=== PATIENT | female | born 1950 | race American Indian/Alaskan Native ===

== ENCOUNTER 2017-07-03 03:41 | Inpatient (IN) ==
[2017-07-03] MEDS ORDERED: ACETAMINOPHEN 325 MG TABLET PO ONE ×2 (04:31→04:41)
[2017-07-03] MEDS ORDERED: ONDANSETRON 4 MG/2 ML VIAL ONE (05:08)
[2017-07-03] MEDS ORDERED: ONDANSETRON 4 MG/2 ML VIAL IV ONE (05:10)
[2017-07-03 05:12] LABS: Basophils # (Auto) 0.2 K/mcL (0.0-0.3); Basophils % (Auto) 1.1 % (0.0-2.0); Eosinophils # (Auto) 0.1 K/mcL (0.0-0.7); Eosinophils % (Auto) 0.8 % (0.0-7.0); Granulocytes % (Auto) 86.3 % (38.0-78.0); Lymphocytes # (Auto) 0.9 K/mcL (1.5-4.8); Lymphocytes % (Auto) 6.8 % (15.5-49.0); Mean Cell Volume 93.9 fL (80.0-100.0); Mean Corpuscular HGB Conc 33.7 g/dL (31.0-36.0); Mean Corpuscular Hemoglobin 31.6 pg (26.0-34.0); Monocytes # (Auto) 0.7 K/mcL (0.1-0.9); Platelet Count 253 K/mcL (140-440); RBC 3.12 M/mcL (4.00-5.20); Red Cell Distribution Width 15.8 % (11.5-14.5)
[2017-07-03] MEDS ORDERED: cefTRIAXone 1 GM VIAL IM ONE (05:27)
[2017-07-03 05:28] LABS: ALT/SGPT 14 U/l (0-40); Albumin 3.9 gm/dL (3.2-5.2); Albumin/Globulin Ratio 1.3 (1.0-2.3); Alkaline Phosphatase 171 U/L (39-117); Blood Urea Nitrogen 40 mg/dl (8-23)
--- NOTE | 2017-07-03 05:35 | Emergency Department Note ---
Fever HPI - General Chief Complaint: Fever Stated Complaint: fever Time Seen by Provider: 07/03/17 05:31 Source: family Mode of arrival: wheelchair Limitations: no limitations - History of Present Illness HPI Narrative: This pleasant 67-year-old comes in waking up this morning with feeling very cold. She is worried about possible infection such as around her toes where she has had previous unsuspected infection that ended up with amputation of her fifth toe on each foot. She has no other sign or symptom of infection that she can share at this time except as follows. For example, no runny nose, no sore throat, no coughing, no ear pain. She vomited once on the way in. She had 2 episodes of diarrhea yesterday afternoon. There was no blood in her diarrhea. She has a niece with an upper respiratory infection but has stayed away from her. No scabs or decubiti that she is aware of (is wheelchair bound). - Related Data Home Medications Medication Instructions Recorded Confirmed Aldendronate 70 mg PO WEEKLY 02/14/16 07/03/17 Aspirin [Lite Coat Aspirin] 325 mg PO DAILY 02/14/16 07/03/17 Carvedilol [Coreg] 12.5 mg PO BIDCC 02/14/16 07/03/17 Docusate Sodium [Dok] 100 mg PO DAILY 02/14/16 07/03/17 Gabapentin [Neurontin] 100 mg PO DAILY PRN 02/14/16 07/03/17 traMADol [Ultram] 50 mg PO BID 02/14/16 07/03/17 Ergocalciferol (Vitamin D2) 50,000 unit PO WEEKLY 07/03/17 07/03/17 [Vitamin D2] Folic Acid/Vit Bcomp,C 0.8 mg PO ONCE 07/03/17 07/03/17 [Nephro-Juancarlos Tablet] Sevelamer [Renvela] 800 mg PO ONCE 07/03/17 07/03/17 Allergies Allergy/AdvReac Type Severity Reaction Status Date / Time cinacalcet [From Sensipar] AdvReac Severe Other Verified 02/15/16 10:35 Review of Systems Review of Systems: General: Fevers chills but no sweats. Eyes: No visual changes. CV: She denies chest pains and palpitations. Pulmonary: She denies cough and shortness of breath. She does not use oxygen at home. GI: No abdominal pain or nausea. Vomited once this morning. She also vomited during the interview today. She has had a couple of episodes of the diarrhea. She has a sense of needing to go to the bathroom with a bowel movement as if constipated. She nearly passes out when she tries to have a bowel movement and has to force it. She has taken a little more tramadol around her dialysis which sometimes adds to constipation or difficulties with bowels. : No dysuria but she has no urinary output. MSK: No back pain. She has joint pain in her shoulders that is quite significant and severe as well as upper arm achiness bilateral, right more than the left I believe. Derm: Sometimes a rash around her panty line area with roughness. No skin lesions. Neuro: No headaches. She has felt weak today. No dizziness but feels lightheaded after dialysis which is not usually normal for her. Last dialysis they took off 44. Psych: She denies anxiety or depression symptoms currently. Did have some depression in the past. Endocrine: Some fatigue after dialysis. Fever PMH - Past Medical History Medical history: Reports: coronary artery disease (minor narrowing, 2015.), diabetes, hypertension, osteoporosis, renal disease (on chronic dialisys since 1998), other (Morbid obesity. NO TYESHA, PUD, pancreatitis.). Denies: cancer, CVA , hyperlipidemia, myocardial infarction, thyroid disease, TIA Surgical history ED: Reports: orthopedic, other (CTS. Amputation both 5th toes. ), other (A-V shunt left forearm.) Psychiatric history: Reports: depression (remotely. Now fine.). Denies: anxiety Family history: Reports: other (two brothers with CRF, DM; .) - Social History smoking status: Never smoker Alcohol use: Reports: None Drug use: Reports: none. Denies: marijuana Physical Exam Limitations: no limitations General appearance: alert, in no apparent distress, other (vomited several times during interview. Morbidly overweight.) Head: atraumatic, normocephalic Eye: Present: normal appearance, PERRL, EOMI. Absent: scleral icterus, conjunctival injection ENT: normal oropharynx, mucous membranes moist Neck: Present: trachea midline. Absent: lymphadenopathy, thyromegaly Respiratory: Present: normal lung sounds bilaterally. Absent: respiratory distress, wheezes, stridor, accessory muscle use, prolonged expiratory phase Cardiovascular: Present: regular rate, normal rhythm. Absent: systolic murmur ( vs possible faint murmur of venous flow (?)), diastolic murmur Abdominal: Present: soft, tenderness. Absent: distention, guarding, rebound, rigidity, organomegaly, mass Abdominal tenderness: Present: epigastrium, mild, moderate Extremities: Present: pretibial edema (trace pitting.). Absent: tenderness, pedal edema Back: Absent: tenderness Neurological: Present: alert, oriented X3 Psychiatric: Present: normal affect, normal mood Skin: Present: warm, dry, other (between toes right foot (3-4th, 2-3rd) moist white desquamation.) Course Vital Signs Temperature 102.8 F H 07/03/17 03:41 Pulse Rate 118 H 07/03/17 03:41 Respiratory Rate 19 07/03/17 03:41 Blood Pressure 144/63 07/03/17 03:41 Temperature 101.9 F H 07/03/17 05:32 Pulse Rate 101 H 07/03/17 07:09 Respiratory Rate 19 07/03/17 03:41 Blood Pressure 98/50 07/03/17 06:16 Pulse Oximetry (%) 95 07/03/17 07:09 Fever - MDM Narrative Medical decision making narrative: 3:50 AM Initial eval. Diabetic CRF dialysis patient with probable sepsis based on tachy, high fever, etc. No source easily identifiable. 5:00 AM Very very difficult blood draw for blood cultures. Requested help from Ching Wong). Labs with elevated WBC at 13.7, lactate 2.3. -- Anemia similar to past. 5:30 AM Rocephin given after blood cultures. 6:00 AM Noticeable decline in BP to systolics 90's Temp declined from 103 to 101. Pulse improved from 130's to 110's. On oxygen due to 88% on room air. Confirms a FULL CODE. Sister Pradeep Ortega is her POA. 6:13 AM I discussed with Dr. Cesar Ely. Stay at 1 L of fluid resuscitation, use pressors, use 1.5 grams of Vancomycin. Transfer out since no dialysis present and likely would need this option. 6:15 AM Dialysis IS available in [facility]. 6:17 AM Briefly discussed with Dr. Jordan who will see patient before final disposition. - Lab Data Result diagrams: 07/03/17 04:25 07/03/17 04:25 Lab Results 07/03/17 07/03/17 07/03/17 Range/Units 04:25 04:25 04:25 WBC 13.7 H (4.5-11.0) K/mcL RBC 3.12 L (4.00-5.20) M/mcL Hgb 9.9 L (12.0-15.0) g/dL Hct 29.3 L (36.0-48.0) % MCV 93.9 (80.0-100.0) fL MCH 31.6 (26.0-34.0) pg MCHC 33.7 (31.0-36.0) g/dL RDW 15.8 H (11.5-14.5) % Plt Count 253 (140-440) K/mcL MPV 7.6 (7.4-10.4) fL Gran % 86.3 H (38.0-78.0) % Lymph % (Auto) 6.8 L (15.5-49.0) % Lea % (Auto) 5.0 (1.0-12.0) % Eos % (Auto) 0.8 (0.0-7.0) % Baso % (Auto) 1.1 (0.0-2.0) % Gran # 11.8 H (1.8-8.0) K/mcL Lymph # (Auto) 0.9 L (1.5-4.8) K/mcL Lea # (Auto) 0.7 (0.1-0.9) K/mcL Eos # (Auto) 0.1 (0.0-0.7) K/mcL Baso # (Auto) 0.2 (0.0-0.3) K/mcL VBG Lactic Acid 2.3 H (0.5-2.2) mmol/L Sodium 136 (133-145) mmol/L Potassium 5.1 (3.3-5.1) mmol/L Chloride 92 L (96-108) mmol/L Carbon Dioxide 27 (22-30) mmol/L Anion Gap 17.0 H (8-16) BUN 40 H (8-23) mg/dl Creatinine 4.3 H (0.6-1.1) mg/dl GFR Calculation 10 Glucose 153 H (70-105) mg/dL Calcium 8.9 (8.6-10.4) mg/dl Total Bilirubin 0.4 (0.0-1.0) mg/dL AST 23 (0-37) U/l ALT 14 (0-40) U/l Alkaline Phosphatase 171 H (39-117) U/L Troponin T (0-0.03) ng/ml C-Reactive Protein 1.0 H (0.0-0.8) mg/dl Total Protein 7.0 (5.9-8.4) gm/dL Albumin 3.9 (3.2-5.2) gm/dL Globulin 3.1 (2.2-3.7) gm/dL Albumin/Globulin Ratio 1.3 (1.0-2.3) Lipase (7-60) U/L 07/03/17 07/03/17 Range/Units 05:35 05:35 WBC (4.5-11.0) K/mcL RBC (4.00-5.20) M/mcL Hgb (12.0-15.0) g/dL Hct (36.0-48.0) % MCV (80.0-100.0) fL MCH (26.0-34.0) pg MCHC (31.0-36.0) g/dL RDW (11.5-14.5) % Plt Count (140-440) K/mcL MPV (7.4-10.4) fL Gran % (38.0-78.0) % Lymph % (Auto) (15.5-49.0) % Lea % (Auto) (1.0-12.0) % Eos % (Auto) (0.0-7.0) % Baso % (Auto) (0.0-2.0) % Gran # (1.8-8.0) K/mcL Lymph # (Auto) (1.5-4.8) K/mcL Lea # (Auto) (0.1-0.9) K/mcL Eos # (Auto) (0.0-0.7) K/mcL Baso # (Auto) (0.0-0.3) K/mcL VBG Lactic Acid (0.5-2.2) mmol/L Sodium (133-145) mmol/L Potassium (3.3-5.1) mmol/L Chloride (96-108) mmol/L Carbon Dioxide (22-30) mmol/L Anion Gap (8-16) BUN (8-23) mg/dl Creatinine (0.6-1.1) mg/dl GFR Calculation Glucose (70-105) mg/dL Calcium (8.6-10.4) mg/dl Total Bilirubin (0.0-1.0) mg/dL AST (0-37) U/l ALT (0-40) U/l Alkaline Phosphatase (39-117) U/L Troponin T 0.07 H* (0-0.03) ng/ml C-Reactive Protein (0.0-0.8) mg/dl Total Protein (5.9-8.4) gm/dL Albumin (3.2-5.2) gm/dL Globulin (2.2-3.7) gm/dL Albumin/Globulin Ratio (1.0-2.3) Lipase 18 (7-60) U/L Disposition Pt seen by STAVE JOINTER/PA only: No Clinical Impression: Nausea vomiting and diarrhea, Hypoxia, Tachycardia, Tinea pedis of right foot, Problem with vascular access Fever Qualifiers: Fever type: due to other condition Qualified Code(s): R50.81 - Fever presenting with conditions classified elsewhere CRF (chronic renal failure) Qualifiers: Chronic kidney disease stage: stage 5 Qualified Code(s): N18.5 - Chronic kidney disease, stage 5 Diabetes mellitus Qualifiers: Diabetes mellitus type: type 2 Diabetes mellitus complication status: with unspecified complications Diabetes mellitus intermediate manager insulin use: without halfway use Qualified Code(s): E11.8 - Type 2 diabetes mellitus with unspecified complications Hematemesis Qualifiers: Nausea presence: with nausea Qualified Code(s): K92.0 - Hematemesis Leukocytosis, unspecified Qualifiers: Leukocytosis type: leukemoid reaction Qualified Code(s): D72.823 - Leukemoid reaction Anemia in chronic renal disease Qualifiers: Chronic kidney disease stage: stage 5, not on chronic dialysis Qualified Code(s ): N18.5 - Chronic kidney disease, stage 5 Disposition: Xfer As Inpt ([facility]) Condition: Undetermined
[2017-07-03] MEDS ORDERED: PANTOPRAZOLE 40 MG VIAL IV ONE (05:41)
[2017-07-03] MEDS ORDERED: cefTRIAXone 1 GM VIAL IV ONE ×3 (05:47→07:46)
[2017-07-03] MEDS ORDERED: 0.9 % SODIUM CHLORIDE 1,000 ML IV ONE (05:49)
[2017-07-03] MEDS ORDERED: VANCOMYCIN 1,500 MG in 0.9 % SODIUM CHLORIDE 500 ML IV ONE (06:12)
--- NOTE | 2017-07-03 07:34 | Internal Med History&Physical ---
Medical - H&P: HPI Patient information: Note initiated : 07/03/17 at 7:02 am Service Date, if different from initiated Date: [] Patient: Marjorie Wallace 67 y/o F admitted on for fever. Chief Complaint: [] History of present illness: Ms. Wallace is a 67 year old female with a history of end-stage renal disease on dialysis, prior sepsis secondary to foot cellulitis who presented to the ER early this morning with chills. She was found to be febrile with a temperature of 102.8. Her localizing symptoms include 2 episodes of nonbloody diarrhea, emesis while in the ER that was Hemoccult positive and myalgias. She has been exposed to her 9-year-old niece that has an upper respiratory infection. She endorses myalgias. She has chronic cramping in her bilateral legs with dialysis and at night. Her workup was delayed as she is a difficult lab draw. She was treated with vancomycin and ceftriaxone in the ED. Blood cultures were taken prior to antibiotics. She did not receive her influenza vaccine this year as she "doesn't believe in them". Her rapid flu was negative in the ED. She denies any abdominal pain, rhinorrhea, sore throat, new skin problems, worsening dental problems. She states her top right gum is wearing away, but has no new pain there. She has a history of sepsis secondary to foot cellulitis that required debridement by Dr. Solares. She has a wound between her right third and fourth toes that has some drainage, but no purulence. She complains of bilateral shoulder aching and attributes this to rotator cuff injury that has been chronic. This achy pain radiates to her shoulders and her elbows. It is not associated with exertion. Review of systems: Please see the HPI. Otherwise a comprehensive review of systems is negative or noncontributory to the chief complaint. Medical - H&P: PMH Medical history: 1. End-stage renal disease on hemodialysis Wednesday, Wednesday, Wednesday. 2. Coronary artery disease 3. Hypertension 4. Neuropathy 5. Degenerative joint disease 6. Osteoporosis 7. History of type 2 diabetes, not currently on treatment. Surgical history: Prior left fifth toe amputation Pertinent family history: Strong family history of diabetes mellitus and peripheral vascular disease. She states she has 2 brothers who required dialysis who have now since . Social history: She lives with her daughter, Mirian and Mirian's 3 children in [place]. She does not work outside the home. She is wheelchair-bound. She denies tobacco, alcohol or recreational drug use. She would accept CPR, defibrillation cardioversion, but she would not want intubation. Her sister, Pradeep Ortega, is her surrogate medical decision maker. Medical - H&P: Meds Home Medications Medication Instructions Recorded Confirmed Type Aldendronate 70 mg PO WEEKLY 02/14/16 07/03/17 History Aspirin [Lite Coat Aspirin] 325 mg PO DAILY 02/14/16 07/03/17 History Carvedilol [Coreg] 12.5 mg PO BIDCC 02/14/16 07/03/17 History Docusate Sodium [Dok] 100 mg PO DAILY 02/14/16 07/03/17 History Gabapentin [Neurontin] 100 mg PO DAILY PRN 02/14/16 07/03/17 History traMADol [Ultram] 50 mg PO BID 02/14/16 07/03/17 History Ergocalciferol (Vitamin D2) 50,000 unit PO WEEKLY 07/03/17 07/03/17 History [Vitamin D2] Folic Acid/Vit Bcomp,C 0.8 mg PO ONCE 07/03/17 07/03/17 History [Nephro-Juancarlos Tablet] Sevelamer [Renvela] 800 mg PO ONCE 07/03/17 07/03/17 History Allergies Allergy/AdvReac Type Severity Reaction Status Date / Time cinacalcet [From Sensipar] AdvReac Severe Other Verified 02/15/16 10:35 Medical - H&P: Exam - Constitutional Vitals: Temp Pulse Resp BP Pulse Ox 101.9 F H 108 H 19 98/50 95 07/03/17 05:32 07/03/17 06:16 07/03/17 03:41 07/03/17 06:16 07/03/17 06:16 General: Pleasant, obese, appears fatigued, nontoxic. She is wearing a wig HEENT: Normocephalic, atraumatic. PERRLA. EOMI. Conjunctiva are clear. Sclerae are anicteric. Mucous membranes are dry. Multiple dental caries Neck: Supple without adenopathy or thyromegaly. Trachea is midline. No JVD. Pulmonary: No acute respiratory distress. No crackles or wheezes. CV: Regular rate and rhythm. No murmur heard. She has a fistula in her left forearm that is pulsatile with a thrill. Abdomen: Soft, nondistended, nontender. Positive bowel tones. Extremities: No clubbing or cyanosis. She has trace pitting edema. She has a wound between her third and fourth toes that has dried serous drainage. No erythema, warmth or fluctuance. Skin: Warm and dry. Hyperpigmentation of the bilateral lower extremities consistent with venous stasis. Neuro: Alert and oriented 3. Cranial nerves II through XII are grossly intact. She has no focal motor deficits. Psych: Normal mood and affect. Medical - H&P: Reslt - Labs CBC & Chem 7: 07/03/17 04:25 07/03/17 04:25 Labs: Short CBC 07/03/17 Range/Units 04:25 WBC 13.7 H (4.5-11.0) K/mcL Hgb 9.9 L (12.0-15.0) g/dL Hct 29.3 L (36.0-48.0) % Plt Count 253 (140-440) K/mcL BMP 07/03/17 04:25 Sodium 136 Potassium 5.1 Chloride 92 L Carbon Dioxide 27 BUN 40 H Creatinine 4.3 H Glucose 153 H Calcium 8.9 Liver Function 07/03/17 Range/Units 04:25 Total Bilirubin 0.4 (0.0-1.0) mg/dL AST 23 (0-37) U/l ALT 14 (0-40) U/l Alkaline Phosphatase 171 H (39-117) U/L Albumin 3.9 (3.2-5.2) gm/dL Medical - H&P: A/P - Narrative A/P Narrative: #Severe sepsis with lactic acidosis, question etiology. DDx and localizing sx include: -Influenza--rapid flu neg. However, sensitivity is at best 50-70% -Viral gastroenteritis -Bacteremia -Bilateral shoulder pain -Hypoxia Plan: 1. She is s/p 1L IVF in ED and holding her pressures. As she is anuric and mildly hypoxic, Dr. Ely favors using vasopressors for blood pressure support in lieu of fluids. Stable now; may be able to avoid central line, but will have low threshold to place if she starts to worsen. 2. Empiric tx of influenza with oseltamivir until another source is identified. 3. Cont vancomycin. Change CTX to 2g Q 24H 4. CXR 5. f/u cx. Trend lactate 6. Check C diff with h/o diarrhea #Hypoxia -currently requiring 2L. No crackles on exam. -Titrate O2 to keep sats >90%. CXR as above. #Hemoccult-positive emesis--cont PPI started in ED. Monitor. No e/o significant GIB at this point. Hold ASA for now. PRN antiemetics #Hypertension/coronary artery disease--Baseline SBP ~130. Hold Coreg. She has bilateral shoulder aching that seems chronic by history, but check EKG and troponin. #Anemia of chronic disease, stable--monitor. Baseline Hgb 8.3-9.0 #ESRD on hemodialysis--Dr. Ely consulting. Dialyzes MWF. #Chronic pain--hold tramadol and gabapentin. Low dose IV Dilaudid for now #PPx: heparin SC #Code status: Pt initially told Dr. Padgett that she was a full code. However, now she is adamant that she would not want endotracheal intubation ("because it would hurt too much") even if she might without it. She would accept compressions and defib/cardioversion. Her sister, Pradeep Ortega, is her surrogate MDM.
[2017-07-03] MEDS ORDERED: HYDROmorphone 2 MG/ML SYRINGE IV PRN (07:46)
[2017-07-03] MEDS ORDERED: IPRATROPIUM/ALBUTEROL 3 ML AMPUL.NEB NEB PRN (07:46)
[2017-07-03] MEDS ORDERED: DEXTROSE 50% 50 ML VIAL IV PRN (07:48)
[2017-07-03] MEDS ORDERED: DEXTROSE 31 GM ORAL.SUSP PO PRN (07:48)
[2017-07-03] MEDS ORDERED: NOREPINEPHRINE BITARTRATE 8 MG in 0.9 % SODIUM CHLORIDE 242 ML IV SCH (08:30)
--- NOTE | 2017-07-03 08:56 | XRay Report ---
CLINICAL INFORMATION: Hypoxia COMPARISON: 02/14/2016 FINDINGS: Moderate cardiomegaly has increased. Mediastinum is widened. Pulmonary vessels are now moderate distended and there is mild diffuse interstitial edema. A moderate sized vague infiltrate has developed in the right mid and lower lungs. Small bilateral pleural effusions are noted IMPRESSION: Moderate CHF Moderate airspace disease right mid and lower lungs suspicious for pneumonia or aspiration. Interpreted and Authenticated by: Manuel Loving 07/03/17
[2017-07-03] MEDS ORDERED: OSELTAMIVIR PHOSPHATE 6 MG/ML ORAL SOLUTION PO ONE (09:00)
[2017-07-03] MEDS ORDERED: OSELTAMIVIR PHOSPHATE 75 MG CAPSULE PO SCH (09:00)
[2017-07-03] MEDS: WATER IV SCH ×2 (09:15→18:22)
[2017-07-03] MEDS: NOREPINEPHRINE BITARTRATE IV SCH ×2 (09:15→18:22)
[2017-07-03] MEDS: DEXTROSE 5% IV SCH ×2 (09:15→18:22)
--- NOTE | 2017-07-03 09:51 | XRay Report ---
CLINICAL INFORMATION: Central line placement COMPARISON: 07/03/2017 0734 hours FINDINGS: Right IJ central line tip overlies the proximal left internal jugular vein. No complication from line placement. The heart is moderately enlarged, but unchanged. Mediastinum unremarkable. Pulmonary vessels are mildly distended and there is interstitial edema throughout both lungs. Moderate infiltrate in the right base IMPRESSION: Moderate CHF unchanged. Moderate right basilar infiltrate - stable Right IJ catheter overlies the proximal internal jugular vein - near the brachycephalic junction Interpreted and Authenticated by: Manuel Loving 07/03/17
[2017-07-03] MEDS: 0.9 % SODIUM CHLORIDE 1,000 ML IV SCH (10:04)
[2017-07-03] MEDS: HEPARIN 5,000 UNIT/ML VIAL SQ SCH ×2 (10:08→21:00)
[2017-07-03] MEDS ORDERED: 0.9 % SODIUM CHLORIDE 250 ML IV SCH ×2 (10:45→17:15)
[2017-07-03] MEDS ORDERED: VASOPRESSIN 20 UNIT in DEXTROSE 5% IN WATER 99 ML IV SCH (11:00)
[2017-07-03] MEDS: PIPERACILLIN SODIUM/TAZOBACTAM 2.25 GM in DEXTROSE 5% IN WATER 50 ML IV SCH ×2 (11:20→21:49)
[2017-07-03] MEDS: INSULIN LISPRO 1 UNIT/0.01 ML UNIT SQ SCH ×3 (13:03→21:01)
--- NOTE | 2017-07-03 13:15 | Consultation ---
DATE OF CONSULTATION: 07/03/2017 CHIEF COMPLAINT: Ms. Wallace is seen in consultation at the request of Dr. Campos for need for central venous access. HISTORY OF PRESENT ILLNESS: The patient is a 67-year-old woman with a past medical history significant for kidney failure for which she is on hemodialysis. The patient came to the hospital today with complaints of feeling cold and during evaluation was found to be hypotensive with diagnosis of sepsis of uncertain etiology made upon admission. Since admission, there has been difficulty obtaining IV access, which has unfortunately presented a delay in the patient's care. Surgical consultation is requested for placement of central venous catheter to establish secure IV access. PAST MEDICAL HISTORY: Diabetes, hypertension, renal failure on hemodialysis, coronary artery disease, morbid obesity, cholecystectomy, left forearm AV shunt. SOCIAL HISTORY: The patient is a nonsmoker, denies alcohol use, denies recreational drug use. MEDICATIONS: Home medications include: Alendronate. Aspirin. Carvedilol. Docusate sodium. Gabapentin. Tramadol. Vitamin D. Folate. Sevelamer. ALLERGIES: CINACALCET. PHYSICAL EXAMINATION: GENERAL APPEARANCE: The patient is a morbidly obese woman who appears unwell. During initial evaluation, the patient was hypotensive with systolic pressures in the 80s. CHEST: Breath sounds are diminished with scattered rales noted, especially near the bases. CARDIOVASCULAR: Tachycardic. ABDOMEN: Obese, soft, nontender to palpation. No masses palpated, though this can be difficult to appreciate due to body habitus. EXTREMITIES: There is a left forearm fistula with a palpable thrill. Lower extremities have hyperpigmentation consistent with venous stasis changes. DP pulses are not palpable bilaterally. LABS: CBC shows a white count of 13.7, hemoglobin 9.9, hematocrit 29.3, platelets of 253. Serum chemistry shows sodium 136, potassium 5.1, chloride 92, BUN 40, creatinine 4.3. C-reactive protein of 1. Troponin T is elevated at 0.07. Lipase 18. AST 23, ALT 14, alkaline phosphatase 171, total bilirubin 0.4. ASSESSMENT AND PLAN: 1. Sepsis with hypotension. 2. Need for venous access. I reviewed with the patient her current condition and the difficulty with obtaining venous access for both administration of therapy as well as evaluation. Central venous catheter placement was discussed with the patient. Risks of the procedure were reviewed. Risks include but are not limited to bleeding, infection, pneumothorax, catheter infection, and catheter malfunction. The patient verbalized understanding of the risks and wished to proceed. RC:rosa Job ID: [id number] Doc ID: [id number] Rowan Saul MD
[2017-07-03] MEDS: ACETAMINOPHEN 325 MG TABLET PO PRN ×2 (13:35→21:10)
[2017-07-03] MEDS: 0.9 % SODIUM CHLORIDE 10 ML SYRINGE IV SCH ×2 (16:28→21:48)
[2017-07-03] MEDS: PANTOPRAZOLE 40 MG VIAL IV SCH (17:00)
[2017-07-03] MEDS ORDERED: VASOPRESSIN 20 UNIT in DEXTROSE 5% IN WATER 99 ML IV PRN (17:05)
[2017-07-04] MEDS ORDERED: NOREPINEPHRINE BITARTRATE 4 MG/4 ML AMPUL IV ONE ×2 (05:06→05:10)
[2017-07-04] MEDS: WATER IV SCH ×2 (05:13→14:47)
[2017-07-04] MEDS: DEXTROSE 5% IV SCH ×2 (05:13→14:47)
[2017-07-04] MEDS: NOREPINEPHRINE BITARTRATE IV SCH ×2 (05:13→14:47)
[2017-07-04 05:31] LABS: Mean Corpuscular HGB Conc 33.2 g/dL (31.0-36.0); Mean Corpuscular Hemoglobin 32.2 pg (26.0-34.0); Platelet Count 219 K/mcL (140-440); RBC 2.76 M/mcL (4.00-5.20); Red Cell Distribution Width 16.6 % (11.5-14.5)
[2017-07-04] MEDS: PIPERACILLIN SODIUM/TAZOBACTAM 2.25 GM in DEXTROSE 5% IN WATER 50 ML IV SCH ×3 (06:02→21:37)
[2017-07-04] MEDS: 0.9 % SODIUM CHLORIDE 10 ML SYRINGE IV SCH ×3 (06:02→21:38)
[2017-07-04 06:09] LABS: Anisocytosis 1+ (NONE SEEN); Band Neutrophils % 1 % (0-10); Basophils % (Manual) 2 % (0-2); Lymphocytes % 7 % (15-49); Monocytes % (Manual) 5 % (1-12); Ovalocytes 1+ (NONE SEEN); Platelet Estimate NORMAL (NORMAL); RBC Morphology ABNORM (NORMAL); Segmented Neutrophils % 85 % (38-78)
[2017-07-04 06:29] LABS: ALT/SGPT 14 U/l (0-40); Albumin 3.3 gm/dL (3.2-5.2); Albumin/Globulin Ratio 1.2 (1.0-2.3); Alkaline Phosphatase 112 U/L (39-117); Blood Urea Nitrogen 50 mg/dl (8-23)
[2017-07-04] MEDS: PANTOPRAZOLE 40 MG VIAL IV SCH ×2 (07:25→18:32)
[2017-07-04] MEDS ORDERED: cefTRIAXone 2 GM in DEXTROSE 5% IN WATER 50 ML IV SCH (07:30)
--- NOTE | 2017-07-04 07:43 | Internal Med Progress Note ---
Medical - PN: Subj Patient information: Note initiated : 07/04/17 at 7:40 am Service Date, if different from initiated Date: [] Patient: Marjorie Wallace 67 y/o F admitted on 07/03/17 for fever. Chief Complaint: [] Interval history: History of present illness: Ms. Wallace is a 67 year old female with a history of end-stage renal disease on dialysis, prior sepsis secondary to foot cellulitis who presented to the ER early this morning with chills. She was found to be febrile with a temperature of 102.8. Her localizing symptoms include 2 episodes of nonbloody diarrhea, emesis while in the ER that was Hemoccult positive and myalgias. She has been exposed to her 9-year-old niece that has an upper respiratory infection. She endorses myalgias. She has chronic cramping in her bilateral legs with dialysis and at night. Her workup was delayed as she is a difficult lab draw. She was treated with vancomycin and ceftriaxone in the ED. Blood cultures were taken prior to antibiotics. She did not receive her influenza vaccine this year as she "doesn't believe in them". Her rapid flu was negative in the ED. She denies any abdominal pain, rhinorrhea, sore throat, new skin problems, worsening dental problems. She states her top right gum is wearing away, but has no new pain there. She has a history of sepsis secondary to foot cellulitis that required debridement by Dr. Solares. She has a wound between her right third and fourth toes that has some drainage, but no purulence. She complains of bilateral shoulder aching and attributes this to rotator cuff injury that has been chronic. This achy pain radiates to her shoulders and her elbows. It is not associated with exertion. July 04: Central line placed yesterday by Dr. Saul Levothroid has been weaned down to 10 g. She denies any pain. She tolerated Jell-O yesterday and has no nausea. We'll advance diet today. Her troponin has not yet peaked at 0.18. She denies any chest pressure or shortness of breath. Her blood sugars are mostly controlled. She is saturating 99% on 3 L. ROS: no fever. no sob - Constitutional Vitals: Vital Signs Temp Pulse Resp BP Pulse Ox 98.2 F 93 H 19 127/33 99 07/04/17 04:02 07/04/17 02:47 07/04/17 05:32 07/04/17 05:32 07/04/17 05:32 Period Temp Pulse Resp BP Sys/Freire Pulse Ox Last 24 Hr 97.4 F-99.7 F 88-109 14-28 69-161/23-60 87-100 Intake and Output 07/03/17 07/04/17 07/04/17 21:59 05:59 13:59 Intake Total 772 / 772 539 / 539 50 / 50 Balance 772 / 772 539 / 539 50 / 50 Weight 341 lb Intake & Output: Intake & Output 07/03/17 07/04/17 07/04/17 21:59 05:59 13:59 Intake Total 772 / 772 539 / 539 50 / 50 Balance 772 / 772 539 / 539 50 / 50 Weight 341 lb Intake: IV 172 / 172 299 / 299 50 / 50 Levophed 8 mg In Dextrose 5% in 172 / 172 249 / 249 Water 242 ml @ 10 MCG/MIN 18. 75 mls/hr IV Q14H [facility] Rx#: [id number] Zosyn 2.25 gm In Dextrose 5% in 50 / 50 50 / 50 Water 50 ml @ 100 mls/hr IV Q8H [facility] Rx#:[id number] Oral 600 / 600 240 / 240 Other: Meal Lunch Percent of Meal Consumed 100% Exam: General: NAD HEENT: Normocephalic, atraumatic. PERRLA. EOMI. Conjunctiva are clear. Sclerae are anicteric. MMM Neck: Supple without adenopathy or thyromegaly. Trachea is midline. No JVD. Pulmonary: No acute respiratory distress. No crackles or wheezes. CV: Regular rate and rhythm. No murmur heard. She has a fistula in her left forearm that is pulsatile with a thrill. Abdomen: Soft, nondistended, nontender. Positive bowel tones. Extremities: No clubbing or cyanosis. She has trace pitting edema. Skin: Warm and dry. Hyperpigmentation of the bilateral lower extremities consistent with venous stasis. Neuro: Alert and oriented 3. Cranial nerves II through XII are grossly intact. She has no focal motor deficits. Psych: Normal mood and affect. Medical - PN: Obj Da - Labs CBC & Chem 7: 07/04/17 04:00 07/04/17 04:00 Labs: Abnormal Lab Results 07/04/17 07/04/17 07/04/17 04:00 04:00 04:00 WBC 12.8 H RBC 2.76 L Hgb 8.9 L Hct 26.7 L RDW 16.6 H Gran % Lymph % (Auto) Gran # Lymph # (Auto) Seg Neutrophils % 85 H Lymphocytes % 7 L RBC Morphology Abnorm A Anisocytosis 1+ A Ovalocytes 1+ A VBG Lactic Acid Chloride 94 L Anion Gap 18.0 H BUN 50 H Creatinine 6.0 H* Glucose 161 H Calcium 8.5 L Alkaline Phosphatase Troponin T 0.18 H* C-Reactive Protein 07/03/17 07/03/17 07/03/17 16:18 05:35 04:25 WBC RBC Hgb Hct RDW Gran % Lymph % (Auto) Gran # Lymph # (Auto) Seg Neutrophils % Lymphocytes % RBC Morphology Anisocytosis Ovalocytes VBG Lactic Acid 2.3 H Chloride Anion Gap BUN Creatinine Glucose Calcium Alkaline Phosphatase Troponin T 0.15 H* 0.07 H* C-Reactive Protein 07/03/17 07/03/17 04:25 04:25 WBC 13.7 H RBC 3.12 L Hgb 9.9 L Hct 29.3 L RDW 15.8 H Gran % 86.3 H Lymph % (Auto) 6.8 L Gran # 11.8 H Lymph # (Auto) 0.9 L Seg Neutrophils % Lymphocytes % RBC Morphology Anisocytosis Ovalocytes VBG Lactic Acid Chloride 92 L Anion Gap 17.0 H BUN 40 H Creatinine 4.3 H Glucose 153 H Calcium Alkaline Phosphatase 171 H Troponin T C-Reactive Protein 1.0 H Meds: Medications Acetaminophen (Tylenol) 650 mg PO Q4-6HP PRN PRN Reason: PAIN/FEVER > 101 Last Admin: 07/03/17 21:10 Dose: 650 mg Albuterol/Ipratropium (Duoneb) 3 ml NEB Q4HP PRN PRN Reason: Shortness Of Breath Dextrose (Dextrose 50%) 0 ml IV UD PRN PRN Reason: Hypoglycemia Diagnostic Test (Pha) (Accu-Chek) 1 each FS ACHS BUD Last Admin: 07/03/17 20:59 Dose: 1 each Glucose (Insta-Glucose) 15 gm PO PRN PRN PRN Reason: Hypoglycemia Heparin Sodium (Porcine) (Heparin) 5,000 unit SQ Q12 [facility] Last Admin: 07/03/17 21:00 Dose: 5,000 unit Hydromorphone HCl (Dilaudid) 0.5 mg IV Q2HP PRN PRN Reason: PAIN LEVEL > 6 Last Admin: 07/03/17 10:08 Dose: 0.5 mg Sodium Chloride (Sodium Chloride 0.9%) 1,000 mls @ 20 mls/hr IV .Q24H [facility] Last Admin: 07/03/17 10:04 Dose: 20 mls/hr Norepinephrine Bitartrate 8 mg (/ Dextrose) 250 mls @ 18.75 mls/hr IV Q14H BUD ; 10 MCG/MIN PRN Reason: Protocol Last Admin: 07/04/17 05:13 Dose: 10 mcg/min, 18.75 mls/hr Piperacillin Sod/Tazobactam (Sod 2.25 gm/ Dextrose) 50 mls @ 100 mls/hr IV Q8H [facility] Last Infusion: 07/04/17 06:57 Dose: Infused Vasopressin 20 unit/ Dextrose 100 mls @ 12 mls/hr IV PRN PRN; Protocol; 0.04 UNIT/MIN PRN Reason: Blood Pressure - Low Insulin Human Lispro (Humalog) 0 unit SQ ACHS BUD PRN Reason: Protocol Last Admin: 07/03/17 21:01 Dose: 1 unit Oseltamivir Phosphate 6 Mg/Ml Oral Solution 1 dose PO MoWeFr@1700 [facility] Stop: 07/14/17 17:01 Ondansetron HCl (Zofran) 4 mg IV Q4HP PRN PRN Reason: Nausea And Vomiting Pantoprazole Sodium (Protonix) 40 mg IV BIDAC [facility] Last Admin: 07/04/17 07:25 Dose: 40 mg Sodium Chloride (Saline Flush) 10 ml IV Q8 [facility] Last Admin: 07/04/17 06:02 Dose: 10 ml Medical - PN: A/P - Time Spent With Patient Total time spent is greater than 50% in coordination of care (as documented) at patient's floor/unit and/or counseling patient: - Narrative A/P Narrative: #Septic shock with lactic acidosis, question etiology. DDx and localizing sx include: -Influenza--rapid flu neg. However, sensitivity is at best 50-70% -Viral gastroenteritis -Bacteremia -Bilateral shoulder pain -Hypoxia Plan: 1. Cont Vanc/Zosyn. Wean Levophed as able. F/U Cx. If no diarrhea or cough x24 hours, DC C diff order/precautions and droplet precautions/oseltamivir. #Hypoxia -currently requiring 3L. Pulm edema on CXR. Bipap if needed. DNI. -Titrate O2 to keep sats >90%. #Hemoccult-positive emesis--cont PPI started in ED. Monitor. No e/o significant GIB at this point. Hold ASA for now. PRN antiemetics. #Hypertension/coronary artery disease with demand ischemia--Baseline SBP ~130. Hold Coreg. Troponin mildly elevated, but asymptomatic. Cont to trend #Anemia of chronic disease, Slight drop to 8.9. Likely dilutional; monitor. Baseline Hgb 8.3-9.0 #ESRD on hemodialysis--Dr. Ely consulting. Dialyzes MWF. #Chronic pain--hold tramadol and gabapentin. Low dose IV Dilaudid for now #PPx: heparin SC #Code status: Pt initially told Dr. Padgett that she was a full code. However, now she is adamant that she would not want endotracheal intubation ("because it would hurt too much") even if she might without it. She would accept compressions and defib/cardioversion. Her sister, Pradeep Ortega, is her surrogate MDM. Medical - PN: Qual - VTE Deep Vein Thrombosis/Pulmonary Embolism Present on Admission: No
[2017-07-04] MEDS ORDERED: cefTRIAXone 2 GM VIAL IV SCH (09:00)
[2017-07-04] MEDS: 0.9 % SODIUM CHLORIDE 1,000 ML IV SCH (10:45)
[2017-07-04] MEDS: INSULIN LISPRO 1 UNIT/0.01 ML UNIT SQ SCH ×4 (11:40→20:44)
[2017-07-04] MEDS: HEPARIN 5,000 UNIT/ML VIAL SQ SCH ×2 (12:31→20:44)
--- NOTE | 2017-07-04 13:12 | Nephrology Progress Note ---
Subjective Patient information: Note initiated : 07/03/17 at 1:05 pm Service Date, if different from initiated Date: [] Patient: Marjorie Wallace 67 y/o F admitted on 07/03/17 for fever. Chief Complaint: [Fever and chills. ] Objective - Vital Signs Vital signs: Vital Signs Temp Pulse Pulse Resp BP Pulse Ox 07/04/17 12:01 89 18 157/47 98 07/04/17 12:00 88 100 07/04/17 08:56 88 16 100 07/04/17 08:00 79 18 148/50 100 07/04/17 07:32 148 H 0 L 139/47 81 L 07/04/17 07:01 22 110/30 07/04/17 06:31 86 16 113/32 98 07/04/17 06:02 87 17 97/34 98 07/04/17 05:32 19 127/33 99 07/04/17 05:02 17 148/43 99 07/04/17 04:32 18 150/40 99 07/04/17 04:02 98.2 F 21 112/32 98 07/04/17 03:31 25 H 148/40 97 07/04/17 03:00 18 152/42 98 07/04/17 02:47 93 H 18 98 07/04/17 02:00 18 131/37 97 07/04/17 01:00 18 136/40 97 07/04/17 00:00 97.4 F 19 120/36 96 07/03/17 23:30 19 111/34 96 07/03/17 23:00 17 119/34 98 07/03/17 22:34 19 114/36 95 07/03/17 22:01 19 108/27 95 07/03/17 21:46 19 112/32 99 07/03/17 21:31 96 H 24 H 127/35 99 07/03/17 21:16 99 H 20 118/47 99 07/03/17 21:01 20 137/40 99 07/03/17 20:31 18 160/47 100 07/03/17 20:01 98.6 F 25 H 150/47 99 07/03/17 19:01 16 161/45 100 07/03/17 18:46 19 139/35 97 07/03/17 18:35 88 18 98 07/03/17 18:31 88 17 144/41 98 07/03/17 18:16 88 17 134/34 97 07/03/17 18:01 88 16 136/34 97 07/03/17 18:00 96 07/03/17 17:46 90 17 138/38 98 07/03/17 17:31 91 H 19 135/36 96 07/03/17 17:26 92 H 17 98 07/03/17 17:16 89 17 146/37 97 07/03/17 17:01 88 16 140/42 97 07/03/17 16:45 89 16 140/43 97 07/03/17 16:31 88 18 126/44 97 07/03/17 16:16 91 H 19 156/43 98 07/03/17 16:01 91 H 17 140/40 98 07/03/17 16:00 99.7 F H 18 07/03/17 15:46 96 H 18 135/39 97 07/03/17 15:31 94 H 18 153/43 96 07/03/17 15:16 89 16 142/35 97 07/03/17 15:02 90 17 152/32 97 07/03/17 14:47 92 H 18 137/47 97 07/03/17 14:33 90 17 97 07/03/17 14:32 93 H 19 149/42 96 07/03/17 14:20 99.1 F H 07/03/17 14:17 91 H 18 153/39 96 07/03/17 14:02 94 H 19 159/39 97 07/03/17 13:47 98 H 22 148/41 97 07/03/17 13:32 96 H 18 144/46 97 07/03/17 13:16 99.2 F H 100 H 21 147/42 97 07/03/17 13:14 99 H 22 96 Intake and Output 07/03/17 07/04/17 07/04/17 21:59 05:59 13:59 Intake Total 772 / 772 539 / 539 250 / 250 Output Total 200 / 200 Balance 772 / 772 539 / 539 50 / 50 Intake: IV 172 / 172 299 / 299 50 / 50 Levophed 8 mg In Dextrose 5% in 172 / 172 249 / 249 Water 242 ml @ 10 MCG/MIN 18. 75 mls/hr IV Q14H [facility] Rx#: [id number] Zosyn 2.25 gm In Dextrose 5% in 50 / 50 50 / 50 Water 50 ml @ 100 mls/hr IV Q8H [facility] Rx#:[id number] Oral 600 / 600 240 / 240 200 / 200 Output: Void Amount 200 / 200 Other: Meal Lunch Breakfast Percent of Meal Consumed 100% 100% Weight 341 lb Intake & Output: Intake & Output 07/03/17 07/04/17 07/04/17 21:59 05:59 13:59 Intake Total 772 / 772 539 / 539 250 / 250 Output Total 200 / 200 Balance 772 / 772 539 / 539 50 / 50 Weight 341 lb Intake: IV 172 / 172 299 / 299 50 / 50 Levophed 8 mg In Dextrose 5% in 172 / 172 249 / 249 Water 242 ml @ 10 MCG/MIN 18. 75 mls/hr IV Q14H [facility] Rx#: [id number] Zosyn 2.25 gm In Dextrose 5% in 50 / 50 50 / 50 Water 50 ml @ 100 mls/hr IV Q8H [facility] Rx#:[id number] Oral 600 / 600 240 / 240 200 / 200 Output: Void Amount 200 / 200 Other: Meal Lunch Breakfast Percent of Meal Consumed 100% 100% - General Appearance General appearance: well-developed EENT: ATNC Neck: no JVD Respiratory: no kyphosis Cardiology: no murmurs Gastrointestinal: normoactive bowel sounds Integumentary: no rash Neurologic: no focal deficit - Lab 07/04/17 04:00 07/04/17 04:00 Most recent lab results Calcium 8.5 mg/dl (8.6-10.4) L 07/04/17 04:00 Assessment and Plan (1) ESRD (end stage renal disease) on dialysis Status: Chronic Comment: Electrolytes look ok. She is hypotensive on levofed and received 2 liters of fluid. Sepsis. No source identified yet.
--- NOTE | 2017-07-04 16:36 | Ultrasound Report ---
CLINICAL INFORMATION: Sepsis looking for source of infection COMPARISON: None. FINDINGS: Arteriovenous graft from the brachial artery to basilic vein. The anastomosis is widely patent. There are three foci of subocclusive thrombus within the mid graft resulting in effective stenoses less than 50%. Slight progression in stenosis since previous study, however. No abscess identified IMPRESSION: No evidence of abscess or phlegmon. Three subocclusive chronic segmental thrombi within the graft each resulting in stenoses of less than 50% Interpreted and Authenticated by: Manuel Loving 07/04/17
[2017-07-04] MEDS: ACETAMINOPHEN 325 MG TABLET PO PRN (19:48)
[2017-07-05] MEDS: PIPERACILLIN SODIUM/TAZOBACTAM 2.25 GM in DEXTROSE 5% IN WATER 50 ML IV SCH ×3 (05:50→23:48)
[2017-07-05] MEDS: 0.9 % SODIUM CHLORIDE 10 ML SYRINGE IV SCH ×3 (05:50→23:49)
--- NOTE | 2017-07-05 06:43 | Operative Note ---
DATE OF OPERATION: 07/03/2017 PREOPERATIVE DIAGNOSIS: Sepsis with hypotension and need for vascular access. POSTOPERATIVE DIAGNOSIS: Sepsis with hypotension and need for vascular access. PROCEDURE PERFORMED: Right IJ quadruple lumen catheter placement under ultrasound guidance. SURGEON: Rowan Saul MD ANESTHETIC: Local anesthetic with 1% LIDOCAINE. INDICATIONS FOR PROCEDURE: The patient is a 67-year-old woman who was admitted to the hospital earlier this morning with a diagnosis of sepsis and hypotension. The patient has poor peripheral access which has delayed treatment and evaluation already. She is in need of venous access for administration of medications as well as further evaluation with lab draws. Consultation request was made for central venous catheter placement. DESCRIPTION OF PROCEDURE: After obtaining consent, the patient was placed in the supine position. The right neck was prepped and draped in a sterile manner. Using the ultrasound probe that had been draped sterilely, the right IJ was identified. The skin and subcutaneous tissues overlying the area where the needle was to be inserted was injected with 1% lidocaine. Next, the large bore needle provided with the kit was used to cannulate the right internal jugular vein. The needle was left in place and the guidewire was inserted into the needle and advanced for a very short distance and then met resistance. The ultrasound probe was used to visualize the needle, which was in the vein and attempts at passing the guidewire again made and the guidewire again met resistance. The needle was removed and pressure was applied. A new stick was performed to access the right internal jugular vein. On the second stick there was a similar occurrence where the needle cannulated the vein with easy blood withdrawal but the guidewire did not advance beyond a short distance. The needle was withdrawn and pressure again applied. The ultrasound probe was again used to visualize the internal jugular vein. The patient's neck was slightly repositioned with further extension of the neck and lifting of the jaw. The large bore needle provided with the kit was used to cannulate the vein again under ultrasound guidance. A guidewire was inserted into the needle and was able to be passed into the vein without resistance. The needle was removed leaving the wire in place. Next, a small incision was made at the skin entrance site of the wire using a scalpel. The dilator was inserted over the guidewire into the vein and then removed. Pressure was applied to minimize backbleeding. The preflushed catheter was then inserted into the vein over the guidewire. The guidewire was removed leaving the catheter in place. The catheter was secured to the skin. This was done using silk suture. Flow was tested through all four ports and found to be adequate on flushing and withdrawal. All 4 ports were flushed with sterile saline. The wound was dressed with sterile dressing. Post-procedure chest x-ray was obtained showing no evidence of pneumothorax or hemothorax with the central venous catheter in good position. RC:harrison Job ID: [id number] Doc ID: [id number] Rowan Saul MD
[2017-07-05 07:03] LABS: ALT/SGPT 15 U/l (0-40); Alkaline Phosphatase 104 U/L (39-117); Blood Urea Nitrogen 64 mg/dl (8-23)
[2017-07-05 07:35] LABS: Basophils # (Auto) 0 K/mcL (0.0-0.3); Basophils % (Auto) 0.3 % (0.0-2.0); Eosinophils # (Auto) 0.3 K/mcL (0.0-0.7); Eosinophils % (Auto) 2.5 % (0.0-7.0); Granulocytes % (Auto) 79.1 % (38.0-78.0); Lymphocytes % (Auto) 9.6 % (15.5-49.0); Mean Cell Volume 96.2 fL (80.0-100.0); Mean Corpuscular HGB Conc 33.3 g/dL (31.0-36.0); Monocytes # (Auto) 0.9 K/mcL (0.1-0.9); Monocytes % (Auto) 8.5 % (1.0-12.0); Platelet Count 177 K/mcL (140-440); RBC 2.58 M/mcL (4.00-5.20); Red Cell Distribution Width 16.4 % (11.5-14.5)
[2017-07-05] MEDS: PANTOPRAZOLE 40 MG VIAL IV SCH ×2 (08:45→19:10)
[2017-07-05] MEDS: HEPARIN 5,000 UNIT/ML VIAL SQ SCH ×2 (08:46→21:24)
[2017-07-05] MEDS: INSULIN LISPRO 1 UNIT/0.01 ML UNIT SQ SCH ×4 (09:15→21:25)
--- NOTE | 2017-07-05 10:06 | Nephrology Progress Note ---
Subjective Patient information: Note initiated : 07/05/17 at 10:04 am Service Date, if different from initiated Date: [] Patient: Marjorie Wallace 67 y/o F admitted on 07/03/17 for fever. Chief Complaint: [Did not sleep well. Has been tired. Still on levofed. Drops BP when off levofed. ] Objective - Vital Signs Vital signs: Vital Signs Temp Pulse Pulse Resp BP BP Pulse Ox 07/05/17 06:01 19 148/36 99 07/05/17 05:00 18 146/54 100 07/05/17 04:00 97.6 F 15 136/38 98 07/05/17 03:01 15 164/60 99 07/05/17 02:01 16 146/49 99 07/05/17 01:01 19 147/38 100 07/05/17 00:02 97.5 F 16 127/31 99 07/05/17 00:00 18 100 07/04/17 23:02 22 138/37 95 07/04/17 22:02 97.8 F 18 119/33 97 07/04/17 21:01 21 121/40 98 07/04/17 20:00 100.1 F H 19 126/40 99 07/04/17 19:01 23 H 112/46 100 07/04/17 18:01 18 130/35 93 07/04/17 18:00 19 07/04/17 17:01 103 H 18 145/68 92 07/04/17 16:00 99 H 18 169/52 98 07/04/17 15:58 99 H 17 119/44 97 07/04/17 15:54 100.0 F H 20 169/52 98 07/04/17 12:01 89 18 157/47 98 07/04/17 12:00 88 100 Intake and Output 07/04/17 07/05/17 07/05/17 21:59 05:59 13:59 Intake Total 830 / 830 212 / 212 283 / 283 Balance 830 / 830 212 / 212 283 / 283 Intake: IV 50 / 50 212 / 212 103 / 103 Levophed 8 mg In Dextrose 5% in 162 / 162 53 / 53 Water 242 ml @ 10 MCG/MIN 18. 75 mls/hr IV Q14H [facility] Rx#: [id number] Zosyn 2.25 gm In Dextrose 5% in 50 / 50 50 / 50 50 / 50 Water 50 ml @ 100 mls/hr IV Q8H [facility] Rx#:[id number] Oral 780 / 780 0 / 0 180 / 180 Other: Meal Dinner Breakfast Percent of Meal Consumed 25% 100% Feeding Ability Independent Independent Weight 351 lb 4.8 oz Intake & Output: Intake & Output 07/04/17 07/05/17 07/05/17 21:59 05:59 13:59 Intake Total 830 / 830 212 / 212 283 / 283 Balance 830 / 830 212 / 212 283 / 283 Weight 351 lb 4.8 oz Intake: IV 50 / 50 212 / 212 103 / 103 Levophed 8 mg In Dextrose 5% in 162 / 162 53 / 53 Water 242 ml @ 10 MCG/MIN 18. 75 mls/hr IV Q14H [facility] Rx#: [id number] Zosyn 2.25 gm In Dextrose 5% in 50 / 50 50 / 50 50 / 50 Water 50 ml @ 100 mls/hr IV Q8H [facility] Rx#:[id number] Oral 780 / 780 0 / 0 180 / 180 Other: Meal Dinner Breakfast Percent of Meal Consumed 25% 100% Feeding Ability Independent Independent - General Appearance General appearance: well-developed, well-nourished EENT: ATNC Neck: no JVD Respiratory: no kyphosis Cardiology: no murmurs Gastrointestinal: normoactive bowel sounds Integumentary: no rash Neurologic: no focal deficit - Lab 07/05/17 07:22 07/05/17 04:00 Most recent lab results Calcium 8.6 mg/dl (8.6-10.4) 07/05/17 04:00 Assessment and Plan (1) ESRD (end stage renal disease) on dialysis Status: Chronic Comment: Electrolytes look ok. She is hypotensive on levofed and received at least 2 liters of Will dialyse today. Clearly she is volume overloaded. But still on blood pressure support. Will try to take 4 liters of fluid. Sepsis. No source identified yet. Getting better.
[2017-07-05] MEDS: DEXTROSE 5% IV SCH ×3 (10:27→20:30)
[2017-07-05] MEDS: NOREPINEPHRINE BITARTRATE IV SCH ×3 (10:27→20:30)
[2017-07-05] MEDS: WATER IV SCH ×3 (10:27→20:30)
[2017-07-05] MEDS: 0.9 % SODIUM CHLORIDE 1,000 ML IV SCH (10:29)
--- NOTE | 2017-07-05 11:36 | Internal Med Progress Note ---
Medical - PN: Subj Patient information: Note initiated : 07/05/17 at 11:36 am Service Date, if different from initiated Date: [] Patient: Marjorie Wallace 67 y/o F admitted on 07/03/17 for Fever/Septic Shock w / Lactic Acidosis, Hypoxia. Chief Complaint: [] Interval history: History of present illness: Ms. Wallace is a 67 year old female with a history of end-stage renal disease on dialysis, prior sepsis secondary to foot cellulitis who presented to the ER early this morning with chills. She was found to be febrile with a temperature of 102.8. Her localizing symptoms include 2 episodes of nonbloody diarrhea, emesis while in the ER that was Hemoccult positive and myalgias. She has been exposed to her 9-year-old niece that has an upper respiratory infection. She endorses myalgias. She has chronic cramping in her bilateral legs with dialysis and at night. Her workup was delayed as she is a difficult lab draw. She was treated with vancomycin and ceftriaxone in the ED. Blood cultures were taken prior to antibiotics. She did not receive her influenza vaccine this year as she "doesn't believe in them". Her rapid flu was negative in the ED. She denies any abdominal pain, rhinorrhea, sore throat, new skin problems, worsening dental problems. She states her top right gum is wearing away, but has no new pain there. She has a history of sepsis secondary to foot cellulitis that required debridement by Dr. Solares. She has a wound between her right third and fourth toes that has some drainage, but no purulence. She complains of bilateral shoulder aching and attributes this to rotator cuff injury that has been chronic. This achy pain radiates to her shoulders and her elbows. It is not associated with exertion. July 04: Central line placed yesterday by Dr. Saul Levothroid has been weaned down to 10 g. She denies any pain. She tolerated Jell-O yesterday and has no nausea. We'll advance diet today. Her troponin has not yet peaked at 0.18. She denies any chest pressure or shortness of breath. Her blood sugars are mostly controlled. She is saturating 99% on 3 L. ROS: no fever. no sob July 05: Today, the patient remains fairly irritable. 1 minute she reports fairly diffuse pain, and the next minute she denies any pain at all, and says we should stop asking her about chest pain. She is still quite insistent that her blood pressure is always low, and that she should be allowed to go home. She is needed to stay on levo fed at 6 mics to keep her maps greater than 60, although this evening, nurses were able to wean her down. Otherwise, she denies fever chills, headaches or dizziness, chest pain or palpitations, shortness of breath, GI or symptoms. - Constitutional Vitals: Vital Signs Temp Pulse Resp BP Pulse Ox 99.3 F H 87 14 142/39 99 07/05/17 07:00 07/05/17 08:01 07/05/17 08:01 07/05/17 08:01 07/05/17 08:01 Period Temp Pulse Resp BP Sys/Freire Pulse Ox Last 24 Hr 97.5 F-100.1 F 87-103 14-23 112-169/31-68 92-100 Intake and Output 07/04/17 07/05/17 07/05/17 21:59 05:59 13:59 Intake Total 830 / 830 212 / 212 483 / 483 Balance 830 / 830 212 / 212 483 / 483 Weight 351 lb 4.8 oz Blood pressures this afternoon have ranged from 79/62-115/43 Intake & Output: Intake & Output 07/04/17 07/05/17 07/05/17 21:59 05:59 13:59 Intake Total 830 / 830 212 / 212 483 / 483 Balance 830 / 830 212 / 212 483 / 483 Weight 351 lb 4.8 oz Intake: IV 50 / 50 212 / 212 103 / 103 Levophed 8 mg In Dextrose 5% in 162 / 162 53 / 53 Water 242 ml @ 10 MCG/MIN 18. 75 mls/hr IV Q14H BUD Rx#: [id number] Zosyn 2.25 gm In Dextrose 5% in 50 / 50 50 / 50 50 / 50 Water 50 ml @ 100 mls/hr IV Q8H BUD Rx#:[id number] Oral 780 / 780 0 / 0 380 / 380 Other: Meal Dinner Breakfast Percent of Meal Consumed 25% 100% Feeding Ability Independent Independent Medical - PN: Obj Da - Labs CBC & Chem 7: 07/05/17 07:22 07/05/17 04:00 Labs: Abnormal Lab Results 07/05/17 07/05/17 07/04/17 07:22 04:00 15:10 WBC RBC 2.58 L Hgb 8.3 L Hct 24.8 L RDW 16.4 H Gran % 79.1 H Lymph % (Auto) 9.6 L Gran # 8.3 H Lymph # (Auto) 1.0 L Seg Neutrophils % Lymphocytes % RBC Morphology Anisocytosis Ovalocytes VBG Lactic Acid Chloride 93 L Anion Gap 17.0 H BUN 64 H Creatinine 7.7 H* Glucose 178 H Calcium Alkaline Phosphatase Troponin T 0.20 H* C-Reactive Protein Albumin 3.0 L 07/04/17 07/04/17 07/04/17 04:00 04:00 04:00 WBC 12.8 H RBC 2.76 L Hgb 8.9 L Hct 26.7 L RDW 16.6 H Gran % Lymph % (Auto) Gran # Lymph # (Auto) Seg Neutrophils % 85 H Lymphocytes % 7 L RBC Morphology Abnorm A Anisocytosis 1+ A Ovalocytes 1+ A VBG Lactic Acid Chloride 94 L Anion Gap 18.0 H BUN 50 H Creatinine 6.0 H* Glucose 161 H Calcium 8.5 L Alkaline Phosphatase Troponin T 0.18 H* C-Reactive Protein Albumin 07/03/17 07/03/17 07/03/17 16:18 05:35 04:25 WBC RBC Hgb Hct RDW Gran % Lymph % (Auto) Gran # Lymph # (Auto) Seg Neutrophils % Lymphocytes % RBC Morphology Anisocytosis Ovalocytes VBG Lactic Acid 2.3 H Chloride Anion Gap BUN Creatinine Glucose Calcium Alkaline Phosphatase Troponin T 0.15 H* 0.07 H* C-Reactive Protein Albumin 07/03/17 07/03/17 04:25 04:25 WBC 13.7 H RBC 3.12 L Hgb 9.9 L Hct 29.3 L RDW 15.8 H Gran % 86.3 H Lymph % (Auto) 6.8 L Gran # 11.8 H Lymph # (Auto) 0.9 L Seg Neutrophils % Lymphocytes % RBC Morphology Anisocytosis Ovalocytes VBG Lactic Acid Chloride 92 L Anion Gap 17.0 H BUN 40 H Creatinine 4.3 H Glucose 153 H Calcium Alkaline Phosphatase 171 H Troponin T C-Reactive Protein 1.0 H Albumin June 17: Echocardiogram: Shows LVH, LVEF 60%. No wall motion abnormalities. Grade 2 diastolic dysfunction. Biatrial enlargement, moderate to severe pulmonary hypertension. Small pericardial effusion. No vegetations. Mild LV dilation. July 03: Blood culture: Is growing corynebacterium species from only one bottle, thought to be a contaminant. Next Chest x-ray: IMPRESSION: Moderate CHF unchanged.. Moderate right basilar infiltrate - stable. Right IJ catheter overlies the proximal internal jugular vein - near the brachycephalic junction Meds: Medications Acetaminophen (Tylenol) 650 mg PO Q4-6HP PRN PRN Reason: PAIN/FEVER > 101 Last Admin: 07/04/17 19:48 Dose: 650 mg Albuterol/Ipratropium (Duoneb) 3 ml NEB Q4HP PRN PRN Reason: Shortness Of Breath Dextrose (Dextrose 50%) 0 ml IV UD PRN PRN Reason: Hypoglycemia Diagnostic Test (Pha) (Accu-Chek) 1 each FS ACHS [facility] Last Admin: 07/05/17 08:00 Dose: 1 each Glucose (Insta-Glucose) 15 gm PO PRN PRN PRN Reason: Hypoglycemia Heparin Sodium (Porcine) (Heparin) 5,000 unit SQ Q12 BUD Last Admin: 07/05/17 08:46 Dose: 5,000 unit Hydromorphone HCl (Dilaudid) 0.5 mg IV Q2HP PRN PRN Reason: PAIN LEVEL > 6 Last Admin: 07/03/17 10:08 Dose: 0.5 mg Sodium Chloride (Sodium Chloride 0.9%) 1,000 mls @ 20 mls/hr IV .Q24H [facility] Last Admin: 07/05/17 10:29 Dose: Not Given Norepinephrine Bitartrate 8 mg (/ Dextrose) 250 mls @ 18.75 mls/hr IV Q14H BUD ; 10 MCG/MIN PRN Reason: Protocol Last Admin: 07/05/17 10:27 Dose: Not Given Piperacillin Sod/Tazobactam (Sod 2.25 gm/ Dextrose) 50 mls @ 100 mls/hr IV Q8H [facility] Last Infusion: 07/05/17 08:57 Dose: Infused Vasopressin 20 unit/ Dextrose 100 mls @ 12 mls/hr IV PRN PRN; Protocol; 0.04 UNIT/MIN PRN Reason: Blood Pressure - Low Insulin Human Lispro (Humalog) 0 unit SQ ACHS [facility] PRN Reason: Protocol Last Admin: 07/05/17 09:15 Dose: 3 unit Oseltamivir Phosphate 6 Mg/Ml Oral Solution 1 dose PO MoWeFr@1700 [facility] Stop: 07/14/17 17:01 Ondansetron HCl (Zofran) 4 mg IV Q4HP PRN PRN Reason: Nausea And Vomiting Pantoprazole Sodium (Protonix) 40 mg IV BIDAC [facility] Last Admin: 07/05/17 08:45 Dose: 40 mg Sodium Chloride (Saline Flush) 10 ml IV Q8 [facility] Last Admin: 07/05/17 05:50 Dose: 10 ml Medical - PN: A/P - Time Spent With Patient Total time spent is greater than 50% in coordination of care (as documented) at patient's floor/unit and/or counseling patient: 25 - 35 minutes - Narrative A/P Narrative: #1. Infectious disease. Septic shock with lactic acidosis, question etiology. DDx and localizing sx include: -Influenza--rapid flu neg. However, sensitivity is at best 50-70%. Chest x-ray does suggest a right basilar infiltrate. Also consider gastroenteritis, bacteremia, hypoxia. -Continue empiric antibiotics. Vancomycin/Zosyn. -Repeat chest x-ray to look for progression. -Blood pressure appears to be stabilizing, so wean levofed as tolerated. #2. Renal. End-stage renal disease. She is receiving dialysis under the direction of Dr. Ely. 3. Pulmonary. Patient was moderately hypoxic on arrival. She does have mild CHF on her chest x-ray, although her systolic function appears normal on echo. Volume status is managed carefully, regarding CHF risks versus hypotension. #4. CODE STATUS: Limited code. CPR okay, but no intubation. 5. GI. Guaiac positive emesis. PPI was started. No current evidence of GI bleed. 6. Hematologic. Anemia of chronic disease likely. 7. Chronic pain. Resume tramadol and gabapentin as tolerated. 8. DVT prophylaxis: Subcu heparin. Approximately 30 minutes was spent today, reviewing the patient's chart and current test results, interviewing and examining her, reviewing plan of care with staff and also with Dr. Ely of nephrology. Medical - PN: Qual - VTE Deep Vein Thrombosis/Pulmonary Embolism Present on Admission: No
[2017-07-05] MEDS ORDERED: GABAPENTIN 100 MG CAPSULE PO PRN (11:39)
[2017-07-05] MEDS ORDERED: VIT BCOMP C PO SCH (11:45)
[2017-07-05] MEDS ORDERED: [UNRECOGNIZED DRUG - OTHER] PO SCH (11:45)
[2017-07-05] MEDS ORDERED: SEVELAMER 800 MG TABLET PO SCH ×2 (11:45→12:00)
[2017-07-05] MEDS ORDERED: FOLIC ACID PO SCH (11:45)
[2017-07-05] MEDS ORDERED: OSELTAMIVIR PHOSPHATE 6 MG/ML ORAL SOLUTION PO SCH (17:00)
[2017-07-05] MEDS ORDERED: CARVEDILOL 12.5 MG TABLET PO SCH (17:30)
--- NOTE | 2017-07-05 18:49 | XRay Report ---
CLINICAL INFORMATION: Pneumonia COMPARISON: 07/03/2017 FINDINGS: The heart is moderately enlarged, but unchanged. Mediastinum is unremarkable. Pulmonary vessels are normal in today's study. Moderate sized vague right basilar infiltrate is slightly improved IMPRESSION: Improving right basilar infiltrate. Interval resolution CHF Interpreted and Authenticated by: Manuel Loving 07/05/17
[2017-07-05] MEDS: SEVELAMER 800 MG TABLET PO SCH (19:10)
[2017-07-05] MEDS: ACETAMINOPHEN 325 MG TABLET PO PRN (19:54)
[2017-07-05] MEDS: traMADol 50 MG TABLET PO SCH (21:25)
[2017-07-06] MEDS: 0.9 % SODIUM CHLORIDE 10 ML SYRINGE IV SCH ×3 (05:44→22:30)
[2017-07-06] MEDS: PIPERACILLIN SODIUM/TAZOBACTAM 2.25 GM in DEXTROSE 5% IN WATER 50 ML IV SCH ×2 (05:44→16:28)
[2017-07-06 06:16] LABS: Mean Cell Volume 96.1 fL (80.0-100.0); Mean Corpuscular HGB Conc 33.7 g/dL (31.0-36.0); Mean Corpuscular Hemoglobin 32.3 pg (26.0-34.0); Platelet Count 171 K/mcL (140-440); RBC 2.42 M/mcL (4.00-5.20); Red Cell Distribution Width 16.3 % (11.5-14.5)
[2017-07-06 06:49] LABS: ALT/SGPT 13 U/l (0-40); Albumin 2.8 gm/dL (3.2-5.2); Albumin/Globulin Ratio 0.9 (1.0-2.3); Alkaline Phosphatase 95 U/L (39-117); Blood Urea Nitrogen 27 mg/dl (8-23)
[2017-07-06] MEDS: PANTOPRAZOLE 40 MG VIAL IV SCH ×2 (07:19→17:06)
[2017-07-06 07:21] LABS: Anisocytosis 1+ (NONE SEEN); Basophilic Stippling OCC (NONE SEEN); Basophils % (Manual) 1 % (0-2); Eosinophils % (Manual) 7 % (0-7); Lymphocytes % 18 % (15-49); Monocytes % (Manual) 12 % (1-12); Platelet Estimate NORMAL (NORMAL); RBC Morphology ABNORM (NORMAL); Segmented Neutrophils % 62 % (38-78)
[2017-07-06] MEDS: INSULIN LISPRO 1 UNIT/0.01 ML UNIT SQ SCH ×4 (07:49→21:08)
[2017-07-06] MEDS: ASPIRIN 325 MG ENTERIC COATED TABLET PO SCH (07:58)
[2017-07-06] MEDS: HEPARIN 5,000 UNIT/ML VIAL SQ SCH ×2 (07:58→21:07)
[2017-07-06] MEDS: DOCUSATE SODIUM 100 MG CAPSULE PO SCH (07:58)
[2017-07-06] MEDS: traMADol 50 MG TABLET PO SCH ×3 (07:58→21:08)
[2017-07-06] MEDS: SEVELAMER 800 MG TABLET PO SCH ×3 (07:59→17:06)
[2017-07-06] MEDS: CARVEDILOL 12.5 MG TABLET PO SCH ×2 (07:59→17:07)
[2017-07-06] MEDS ORDERED: DARBEPOETIN ALFA 200 MCG/ML VIAL SQ ONE (08:01)
--- NOTE | 2017-07-06 08:25 | Nephrology Progress Note ---
Subjective Patient information: Note initiated : 07/06/17 at 8:22 am Service Date, if different from initiated Date: [] Patient: Marjorie Wallace 67 y/o F admitted on 07/03/17 for Fever/Septic Shock w / Lactic Acidosis, Hypoxia. Chief Complaint: Feels better. Still on Levofed and o2 sats are 88-92. Objective - Vital Signs Vital signs: Vital Signs Temp Pulse Pulse Resp BP BP Pulse Ox 07/06/17 07:14 81 88 L 07/06/17 07:00 83 108/39 86 L 07/06/17 06:45 87 86/51 94 07/06/17 06:31 78 107/30 98 07/06/17 06:16 81 131/28 98 07/06/17 06:01 85 147/40 99 07/06/17 05:46 88 131/31 99 07/06/17 05:31 90 148/42 94 07/06/17 05:16 81 148/45 100 07/06/17 05:00 154/66 99 07/06/17 04:46 148/46 99 07/06/17 04:30 96/33 100 07/06/17 04:02 97.5 F 18 78/27 99 07/06/17 03:01 18 141/33 99 07/06/17 02:00 17 136/35 99 07/06/17 01:01 16 133/29 100 07/06/17 00:31 16 125/30 100 07/06/17 00:01 97.5 F 16 131/47 100 07/06/17 00:00 16 99 07/05/17 23:00 16 110/36 99 07/05/17 22:30 16 124/39 100 07/05/17 22:01 16 112/44 99 07/05/17 21:31 18 100/28 99 07/05/17 21:02 98 07/05/17 21:00 16 118/37 98 07/05/17 20:43 84 98 07/05/17 20:34 73/57 07/05/17 20:30 16 63/44 98 07/05/17 20:05 99.3 F H 18 72/43 96 07/05/17 19:00 101/32 07/05/17 18:30 18 93/28 99 07/05/17 18:16 97.9 F 79 97/27 07/05/17 18:06 80 85/29 07/05/17 18:01 18 91/14 96 07/05/17 17:51 83 79/24 07/05/17 17:41 85 88/28 07/05/17 17:21 85 87/22 07/05/17 17:06 87 100/82 07/05/17 16:52 84 89/34 07/05/17 16:36 84 96/36 07/05/17 16:19 84 90/34 07/05/17 16:04 115/43 07/05/17 16:00 79/62 07/05/17 15:54 85 115/43 07/05/17 15:25 117/45 07/05/17 15:17 84 117/45 07/05/17 15:01 97/44 07/05/17 14:59 118/60 07/05/17 14:52 81 118/60 07/05/17 14:29 111/37 07/05/17 14:28 114/17 07/05/17 14:25 96.8 F L 84 111/37 07/05/17 14:00 120/34 07/05/17 13:22 109/22 07/05/17 12:00 88 92 07/05/17 11:39 103/73 07/05/17 11:00 97.8 F 16 103/73 97 Intake and Output 07/05/17 07/06/17 07/06/17 21:59 05:59 13:59 Intake Total 650 / 650 138 / 138 50 / 50 Output Total 2900 / 2900 Balance -2250 / -2250 138 / 138 50 / 50 Intake: IV 50 / 50 138 / 138 50 / 50 Levophed 8 mg In Dextrose 5% in 88 / 88 Water 242 ml @ 10 MCG/MIN 18. 75 mls/hr IV Q14H BUD Rx#: [id number] Zosyn 2.25 gm In Dextrose 5% in 50 / 50 50 / 50 50 / 50 Water 50 ml @ 100 mls/hr IV Q8H BUD Rx#:[id number] Oral 600 / 600 0 / 0 Output: Hemodialysis UF 2900 / 2900 Other: Meal Dinner Percent of Meal Consumed 100% Feeding Ability Independent # Bowel Movements 1 Weight 336 lb 12.8 oz Intake & Output: Intake & Output 07/05/17 07/06/17 07/06/17 21:59 05:59 13:59 Intake Total 650 / 650 138 / 138 50 / 50 Output Total 2900 / 2900 Balance -2250 / -2250 138 / 138 50 / 50 Weight 336 lb 12.8 oz Intake: IV 50 / 50 138 / 138 50 / 50 Levophed 8 mg In Dextrose 5% in 88 / 88 Water 242 ml @ 10 MCG/MIN 18. 75 mls/hr IV Q14H BUD Rx#: [id number] Zosyn 2.25 gm In Dextrose 5% in 50 / 50 50 / 50 50 / 50 Water 50 ml @ 100 mls/hr IV Q8H BUD Rx#:[id number] Oral 600 / 600 0 / 0 Output: Hemodialysis UF 2900 / 2900 Other: Meal Dinner Percent of Meal Consumed 100% Feeding Ability Independent # Bowel Movements 1 - General Appearance General appearance: well-developed EENT: ATNC Neck: no JVD Respiratory: no kyphosis Cardiology: no murmurs Gastrointestinal: normoactive bowel sounds Integumentary: no rash Neurologic: no focal deficit Musculoskeletal: no deformities Psychiatric: mood/affect appropriate - Lab 07/06/17 03:40 07/06/17 03:40 Most recent lab results Calcium 8.4 mg/dl (8.6-10.4) L 07/06/17 03:40 Assessment and Plan (1) ESRD (end stage renal disease) on dialysis Status: Chronic Comment: Electrolytes look ok. She is still hypotensive on levofed. Volume is better but still probably mildly overloaded. Becuase the bp is low, I am afraid to take more fluid off. Will try PUF for 2 liters. Sepsis. ? Pneumonia. Blood culture cornybacterium.
[2017-07-06] MEDS ORDERED: FOLIC ACID 1 MG TABLET PO SCH (09:00)
[2017-07-06] MEDS ORDERED: FOLIC ACID/VITAMIN B COMP W-C 1 TAB TABLET PO SCH (09:00)
[2017-07-06] MEDS: MIDODRINE 5 MG TABLET PO SCH ×3 (09:15→17:06)
[2017-07-06] MEDS: 0.9 % SODIUM CHLORIDE 1,000 ML IV SCH (09:16)
[2017-07-06] MEDS: DEXTROSE 5% IV SCH ×2 (09:17→20:45)
[2017-07-06] MEDS: WATER IV SCH ×2 (09:17→20:45)
[2017-07-06] MEDS: NOREPINEPHRINE BITARTRATE IV SCH ×2 (09:17→20:45)
--- NOTE | 2017-07-06 10:19 | Internal Med Progress Note ---
Medical - PN: Subj Patient information: Note initiated : 07/06/17 at 10:19 am Service Date, if different from initiated Date: [] Patient: Marjorie Wallace 67 y/o F admitted on 07/03/17 for Fever/Septic Shock w / Lactic Acidosis, Hypoxia. Chief Complaint: [] Interval history: History of present illness: Ms. Wallace is a 67 year old female with a history of end-stage renal disease on dialysis, prior sepsis secondary to foot cellulitis who presented to the ER early this morning with chills. She was found to be febrile with a temperature of 102.8. Her localizing symptoms include 2 episodes of nonbloody diarrhea, emesis while in the ER that was Hemoccult positive and myalgias. She has been exposed to her 9-year-old niece that has an upper respiratory infection. She endorses myalgias. She has chronic cramping in her bilateral legs with dialysis and at night. Her workup was delayed as she is a difficult lab draw. She was treated with vancomycin and ceftriaxone in the ED. Blood cultures were taken prior to antibiotics. She did not receive her influenza vaccine this year as she "doesn't believe in them". Her rapid flu was negative in the ED. She denies any abdominal pain, rhinorrhea, sore throat, new skin problems, worsening dental problems. She states her top right gum is wearing away, but has no new pain there. She has a history of sepsis secondary to foot cellulitis that required debridement by Dr. Solares. She has a wound between her right third and fourth toes that has some drainage, but no purulence. She complains of bilateral shoulder aching and attributes this to rotator cuff injury that has been chronic. This achy pain radiates to her shoulders and her elbows. It is not associated with exertion. July 04: Central line placed yesterday by Dr. Saul Levothroid has been weaned down to 10 g. She denies any pain. She tolerated Jell-O yesterday and has no nausea. We'll advance diet today. Her troponin has not yet peaked at 0.18. She denies any chest pressure or shortness of breath. Her blood sugars are mostly controlled. She is saturating 99% on 3 L. ROS: no fever. no sob July 05: Today, the patient remains fairly irritable. 1 minute she reports fairly diffuse pain, and the next minute she denies any pain at all, and says we should stop asking her about chest pain. She is still quite insistent that her blood pressure is always low, and that she should be allowed to go home. She is needed to stay on levo fed at 6 mics to keep her maps greater than 60, although this evening, nurses were able to wean her down. Otherwise, she denies fever chills, headaches or dizziness, chest pain or palpitations, shortness of breath, GI or symptoms. July 06: Today, the patient continues to be fairly frustrated. She wants to go home, and does not see why low blood pressure should prevent her from doing that. She was weaned off of the levo fed yesterday, but her blood pressures dropped down again last night, with systolic in the 60s and 70s. Levophed drip was resumed. Dr. Ely and I both had fairly prolonged discussions with her today about the dangers of leaving the hospital before she is clinically stable. She is quite insistent she feels fine all the time with very low blood pressures. She continues to deny fever chills, sore throat or cough, chest pain or palpitations, shortness of breath, GI or symptoms. Yesterday's chest x-ray showed improving right base infiltrate. Leukocytosis has resolved. She continues to be somewhat hypoxic on room air, with O2 saturations dipping down into the 85% range. She insists that she is always fine with low oxygen, as she purposely does not make an effort to breathe deeply, as she thinks this is too noisy and too annoying for those around her. - Constitutional Vitals: Vital Signs Temp Pulse Resp BP Pulse Ox 97.5 F 81 18 108/39 88 L 07/06/17 04:02 07/06/17 07:14 07/06/17 04:02 07/06/17 07:00 07/06/17 07:14 Period Temp Pulse Resp BP Sys/Freire Pulse Ox Last 24 Hr 96.8 F-99.3 F 78-90 16-18 63-154/14-82 86-100 Intake and Output 07/05/17 07/06/17 07/06/17 21:59 05:59 13:59 Intake Total 650 / 650 138 / 138 253 / 253 Output Total 2900 / 2900 Balance -2250 / -2250 138 / 138 253 / 253 Weight 336 lb 12.8 oz Intake & Output: Intake & Output 07/05/17 07/06/17 07/06/17 21:59 05:59 13:59 Intake Total 650 / 650 138 / 138 253 / 253 Output Total 2900 / 2900 Balance -2250 / -2250 138 / 138 253 / 253 Weight 336 lb 12.8 oz Intake: IV 50 / 50 138 / 138 73 / 73 Levophed 8 mg In Dextrose 5% in 88 / 88 23 / 23 Water 242 ml @ 10 MCG/MIN 18. 75 mls/hr IV Q14H BUD Rx#: [id number] Zosyn 2.25 gm In Dextrose 5% in 50 / 50 50 / 50 50 / 50 Water 50 ml @ 100 mls/hr IV Q8H BUD Rx#:[id number] Oral 600 / 600 0 / 0 180 / 180 Output: Hemodialysis UF 2900 / 2900 Other: Meal Dinner Breakfast Percent of Meal Consumed 100% 100% Feeding Ability Independent Independent # Bowel Movements 1 She is awake and alert, and somewhat irritable. Neck shows no obvious JVD or lymphadenopathy. Cardiac exam shows regular rate and rhythm. Lungs: Again show a few crackles mainly at the right base, without rhonchi or wheezes. Abdomen is soft and nontender. Extremities show no significant edema. Neurologic exam: Is grossly nonfocal. Medical - PN: Obj Da - Labs CBC & Chem 7: 07/06/17 03:40 07/06/17 03:40 Labs: Abnormal Lab Results 07/06/17 07/06/17 07/05/17 03:40 03:40 07:22 WBC RBC 2.42 L 2.58 L Hgb 7.8 L 8.3 L Hct 23.3 L 24.8 L RDW 16.3 H 16.4 H Gran % 79.1 H Lymph % (Auto) 9.6 L Gran # 8.3 H Lymph # (Auto) 1.0 L Seg Neutrophils % Lymphocytes % RBC Morphology Abnorm A Basophilic Stippling Occ A Anisocytosis 1+ A Ovalocytes Chloride 95 L Anion Gap BUN 27 H Creatinine 4.3 H Glucose 173 H Calcium 8.4 L Troponin T Total Protein 5.8 L Albumin 2.8 L Albumin/Globulin Ratio 0.9 L 07/05/17 07/04/17 07/04/17 04:00 15:10 04:00 WBC RBC Hgb Hct RDW Gran % Lymph % (Auto) Gran # Lymph # (Auto) Seg Neutrophils % Lymphocytes % RBC Morphology Basophilic Stippling Anisocytosis Ovalocytes Chloride 93 L Anion Gap 17.0 H BUN 64 H Creatinine 7.7 H* Glucose 178 H Calcium Troponin T 0.20 H* 0.18 H* Total Protein Albumin 3.0 L Albumin/Globulin Ratio 07/04/17 07/04/17 07/03/17 04:00 04:00 16:18 WBC 12.8 H RBC 2.76 L Hgb 8.9 L Hct 26.7 L RDW 16.6 H Gran % Lymph % (Auto) Gran # Lymph # (Auto) Seg Neutrophils % 85 H Lymphocytes % 7 L RBC Morphology Abnorm A Basophilic Stippling Anisocytosis 1+ A Ovalocytes 1+ A Chloride 94 L Anion Gap 18.0 H BUN 50 H Creatinine 6.0 H* Glucose 161 H Calcium 8.5 L Troponin T 0.15 H* Total Protein Albumin Albumin/Globulin Ratio July 05: Chest x-ray: Shows an improving right basilar infiltrate. Interval resolution of CHF. July 04: Echocardiogram: Shows LVH, LVEF 60%. No wall motion abnormalities. Grade 2 diastolic dysfunction. Biatrial enlargement, moderate to severe pulmonary hypertension. Small pericardial effusion. No vegetations. Mild LV dilation. July 03: Blood culture: Is growing corynebacterium species from only one bottle, thought to be a contaminant. Chest x-ray: IMPRESSION: Moderate CHF unchanged.. Moderate right basilar infiltrate - stable. Right IJ catheter overlies the proximal internal jugular vein - near the brachycephalic junction Meds: Medications Acetaminophen (Tylenol) 650 mg PO Q4-6HP PRN PRN Reason: PAIN/FEVER > 101 Last Admin: 07/05/17 19:54 Dose: 650 mg Albuterol/Ipratropium (Duoneb) 3 ml NEB Q4HP PRN PRN Reason: Shortness Of Breath Aspirin (Ecotrin) 325 mg PO DAILY REPLACED BY [facility] Last Admin: 07/06/17 07:58 Dose: 325 mg Carvedilol (Coreg) 12.5 mg PO SuTuThSa@0800,1730 REPLACED BY [facility] Last Admin: 07/06/17 07:59 Dose: Not Given Dextrose (Dextrose 50%) 0 ml IV UD PRN PRN Reason: Hypoglycemia Diagnostic Test (Pha) (Accu-Chek) 1 each FS ACHS REPLACED BY [facility] Last Admin: 07/06/17 07:47 Dose: 1 each Docusate Sodium (Colace) 100 mg PO DAILY REPLACED BY [facility] Last Admin: 07/06/17 07:58 Dose: 100 mg Ergocalciferol (Drisdol) 50,000 unit PO Th@0800 BUD Gabapentin (Neurontin) 100 mg PO DAILY PRN PRN Reason: Pain Glucose (Insta-Glucose) 15 gm PO PRN PRN PRN Reason: Hypoglycemia Heparin Sodium (Porcine) (Heparin) 5,000 unit SQ Q12 REPLACED BY [facility] Last Admin: 07/06/17 07:58 Dose: 5,000 unit Hydromorphone HCl (Dilaudid) 0.5 mg IV Q2HP PRN PRN Reason: PAIN LEVEL > 6 Last Admin: 07/03/17 10:08 Dose: 0.5 mg Sodium Chloride (Sodium Chloride 0.9%) 1,000 mls @ 20 mls/hr IV .Q24H REPLACED BY [facility] Last Admin: 07/06/17 09:16 Dose: Not Given Norepinephrine Bitartrate 8 mg (/ Dextrose) 250 mls @ 18.75 mls/hr IV Q14H BUD ; 10 MCG/MIN PRN Reason: Protocol Last Admin: 07/06/17 09:17 Dose: Not Given Piperacillin Sod/Tazobactam (Sod 2.25 gm/ Dextrose) 50 mls @ 100 mls/hr IV Q8H REPLACED BY [facility] Last Infusion: 07/06/17 07:46 Dose: Infused Vasopressin 20 unit/ Dextrose 100 mls @ 12 mls/hr IV PRN PRN; Protocol; 0.04 UNIT/MIN PRN Reason: Blood Pressure - Low Insulin Human Lispro (Humalog) 0 unit SQ ACHS BUD PRN Reason: Protocol Last Admin: 07/06/17 07:49 Dose: 2 unit Midodrine (Midodrine Hcl) 10 mg PO TID@0800,1200,1700 REPLACED BY [facility] Last Admin: 07/06/17 09:15 Dose: 10 mg Multivit/Ca Carb/B Cmplx/FA/Prenat (Diatx) 1 tab PO DAILY REPLACED BY [facility] Last Admin: 07/06/17 07:58 Dose: 1 tab Oseltamivir Phosphate 6 Mg/Ml Oral Solution 1 dose PO MoWeFr@1700 REPLACED BY [facility] Stop: 07/14/17 17:01 Last Admin: 07/05/17 19:09 Dose: 1 dose Ondansetron HCl (Zofran) 4 mg IV Q4HP PRN PRN Reason: Nausea And Vomiting Pantoprazole Sodium (Protonix) 40 mg IV BIDAC REPLACED BY [facility] Last Admin: 07/06/17 07:19 Dose: 40 mg Sevelamer Carbonate (Renvela) 3,200 mg PO TIDCC REPLACED BY [facility] Last Admin: 07/06/17 07:59 Dose: 3,200 mg Sodium Chloride (Saline Flush) 10 ml IV Q8 REPLACED BY [facility] Last Admin: 07/06/17 05:44 Dose: 10 ml Tramadol HCl (Ultram) 50 mg PO BID REPLACED BY [facility] Last Admin: 07/06/17 09:17 Dose: Not Given Medical - PN: A/P - Time Spent With Patient Total time spent is greater than 50% in coordination of care (as documented) at patient's floor/unit and/or counseling patient: Greater than 35 minutes - Narrative A/P Narrative: #1. Infectious disease. Septic shock with lactic acidosis, question etiology. DDx and localizing sx include: -Influenza--rapid flu neg. However, sensitivity is at best 50-70%. Chest x-ray does suggest a right basilar infiltrate. Also consider gastroenteritis, bacteremia, hypoxia. -Continue empiric antibiotics for apparent right lower lobe pneumonia. Vancomycin/Zosyn. -Blood pressure appears to be stabilizing, so wean levofed as tolerated. #2. Renal. End-stage renal disease. She is receiving dialysis under the direction of Dr. Ely. 3. Pulmonary. Patient was moderately hypoxic on arrival. She does have mild CHF on her chest x-ray, although her systolic function appears normal on echo. Volume status is managed carefully, regarding CHF risks versus hypotension. -Last night's chest x-ray showed improvement in pulmonary vascular congestion. Echocardiogram does show significant signs of pulmonary hypertension. Patient is hypoxic on room air, and certainly has the appearance of pickwickian syndrome. She should probably be on home oxygen to keep O2 saturations above 90%, both for pulmonary hypertension as well as generally staying oxygenated. I doubt she will agree to do this at home. She should have pulmonary evaluation at some point, to clarify these issues. #4. Cardiac. She continues quite hypotensive off pressors. Dr. Ely added midodrine today, and so far this does seem to be helping. We will see how she does once she completes dialysis today. 5. GI. Guaiac positive emesis. PPI was started. No current evidence of GI bleed, but hemoglobin and hematocrit are drifting down. She is getting into the range where we should consider transfusion. I will touch base with Dr. Ely about this.. 6. Hematologic. Anemia of chronic disease likely. 7. Chronic pain. Resume tramadol and gabapentin as tolerated. 8. DVT prophylaxis: Subcu heparin. 9. CODE STATUS: Limited code. CPR okay, but no intubation. Approximately 45 minutes was spent today, reviewing the patient's chart and current test results, interviewing and examining her, reviewing plan of care with staff and also with Dr. Ely of nephrology, and then in a separate meeting with her sister, who had lots of questions.. Medical - PN: Qual - VTE Deep Vein Thrombosis/Pulmonary Embolism Present on Admission: No
[2017-07-06] MEDS ORDERED: MIDODRINE 5 MG TABLET PO SCH (12:00)
[2017-07-06] MEDS ORDERED: LORazepam 1 MG TABLET PO PRN (17:17)
[2017-07-06] MEDS: TRIAMCINOLONE CREAM 0.1% 15G 1 DOSE TUBE TOPICAL SCH (20:25)
[2017-07-06] MEDS: ONDANSETRON 4 MG/2 ML VIAL IV PRN (23:55)
[2017-07-07] MEDS: PIPERACILLIN SODIUM/TAZOBACTAM 2.25 GM in DEXTROSE 5% IN WATER 50 ML IV SCH ×2 (00:10→05:38)
[2017-07-07] MEDS: 0.9 % SODIUM CHLORIDE 10 ML SYRINGE IV SCH (05:38)
[2017-07-07 06:13] LABS: Mean Cell Volume 95.9 fL (80.0-100.0); Mean Corpuscular HGB Conc 34.3 g/dL (31.0-36.0); Mean Corpuscular Hemoglobin 32.9 pg (26.0-34.0); Platelet Count 193 K/mcL (140-440); RBC 2.37 M/mcL (4.00-5.20); Red Cell Distribution Width 16.1 % (11.5-14.5)
[2017-07-07 07:21] LABS: ALT/SGPT 11 U/l (0-40); Albumin 2.8 gm/dL (3.2-5.2); Albumin/Globulin Ratio 0.9 (1.0-2.3); Alkaline Phosphatase 104 U/L (39-117); Blood Urea Nitrogen 38 mg/dl (8-23)
[2017-07-07] MEDS: INSULIN LISPRO 1 UNIT/0.01 ML UNIT SQ SCH ×2 (08:01→14:30)
[2017-07-07] MEDS: ONDANSETRON 4 MG/2 ML VIAL IV PRN (08:01)
[2017-07-07 08:26] LABS: Anisocytosis 1+ (NONE SEEN); Eosinophils % (Manual) 10 % (0-7); Lymphocytes % 21 % (15-49); Monocytes % (Manual) 9 % (1-12); Platelet Estimate NORMAL (NORMAL); RBC Morphology ABNORM (NORMAL); Segmented Neutrophils % 60 % (38-78)
--- NOTE | 2017-07-07 08:35 | Nephrology Progress Note ---
Subjective Patient information: Note initiated : 07/07/17 at 8:32 am Service Date, if different from initiated Date: [] Patient: Marjorie Wallace 67 y/o F admitted on 07/03/17 for Fever/Septic Shock w / Lactic Acidosis, Hypoxia. Chief Complaint: Feels better. Still low oxygen. Objective - Vital Signs Vital signs: Vital Signs Temp Pulse Resp BP Pulse Ox 07/07/17 06:01 16 108/42 97 07/07/17 05:01 71 15 95/32 93 07/07/17 04:02 97.6 F 16 115/47 100 07/07/17 03:01 18 99/43 100 07/07/17 02:01 117/49 100 07/07/17 01:01 15 104/44 100 07/07/17 00:03 18 117/37 97 07/07/17 00:00 98 07/06/17 23:01 97.6 F 18 104/44 100 07/06/17 22:37 78 97 07/06/17 22:31 16 96/41 98 07/06/17 22:01 15 102/40 100 07/06/17 21:16 15 99/41 88 L 07/06/17 20:31 16 93/37 92 07/06/17 20:01 76 87/42 95 07/06/17 19:31 17 97/53 94 07/06/17 19:01 16 90/53 89 L 07/06/17 18:38 18 86/65 94 07/06/17 18:01 107/46 07/06/17 18:00 80 17 96 07/06/17 17:46 81 116/50 95 07/06/17 17:31 80 105/87 94 07/06/17 17:16 94/43 07/06/17 17:01 79 79/37 90 07/06/17 16:46 82 85/39 91 07/06/17 16:31 80 100/50 90 07/06/17 16:27 80 88/44 94 07/06/17 16:16 82/39 07/06/17 16:14 82 88/44 07/06/17 16:09 77 82/39 07/06/17 16:01 73 95/56 94 07/06/17 15:54 81 95/56 07/06/17 15:47 73 93/46 92 07/06/17 15:46 73 86/44 88 L 07/06/17 15:44 74 93/46 07/06/17 15:31 74 93/37 97 07/06/17 15:28 73 119/41 96 07/06/17 15:25 76 93/37 07/06/17 15:16 72 101/47 100 07/06/17 15:02 73 98 07/06/17 15:01 73 19 106/52 98 07/06/17 14:54 74 106/52 07/06/17 14:46 71 101/41 99 07/06/17 14:30 73 126/50 100 07/06/17 14:26 97.6 F 73 126/50 07/06/17 14:20 73 99 07/06/17 14:16 72 120/54 98 07/06/17 14:01 72 129/46 99 07/06/17 13:46 76 121/54 97 07/06/17 13:32 77 108/45 100 07/06/17 13:16 121/71 07/06/17 13:01 76 122/52 98 07/06/17 12:33 129/51 07/06/17 12:19 97.2 F 80 16 124/33 97 07/06/17 12:01 118/50 07/06/17 12:00 100 07/06/17 11:46 113/45 07/06/17 11:31 79 126/34 99 07/06/17 11:16 76 115/31 97 07/06/17 11:15 40 L 85 L 07/06/17 11:02 112/49 07/06/17 10:47 77 105/46 87 L 07/06/17 10:32 80 111/46 97 07/06/17 10:17 83 108/44 96 07/06/17 10:03 81 89/38 97 07/06/17 09:47 85 97/36 96 07/06/17 09:40 88 135/93 07/06/17 09:01 98 H 108/95 93 07/06/17 08:46 87 94/66 89 L Intake and Output 07/06/17 07/07/17 07/07/17 21:59 05:59 13:59 Intake Total 360 / 360 150 / 150 0 / 0 Output Total 1999 Balance -1640 / -1640 150 / 150 0 / 0 Intake: IV 100 / 100 Zosyn 2.25 gm In Dextrose 5% in 100 / 100 Water 50 ml @ 100 mls/hr IV Q8H BUD Rx#:[id number] Oral 360 / 360 50 / 50 0 / 0 Output: Hemodialysis UF 1999 Other: Meal Dinner Percent of Meal Consumed 75% # Bowel Movements 1 Weight 341 lb Intake & Output: Intake & Output 07/06/17 07/07/17 07/07/17 21:59 05:59 13:59 Intake Total 360 / 360 150 / 150 0 / 0 Output Total 1999 Balance -1640 / -1640 150 / 150 0 / 0 Weight 341 lb Intake: IV 100 / 100 Zosyn 2.25 gm In Dextrose 5% in 100 / 100 Water 50 ml @ 100 mls/hr IV Q8H BUD Rx#:[id number] Oral 360 / 360 50 / 50 0 / 0 Output: Hemodialysis UF 1999 Other: Meal Dinner Percent of Meal Consumed 75% # Bowel Movements 1 - General Appearance General appearance: well-developed EENT: ATNC Neck: no JVD Respiratory: no kyphosis Cardiology: no murmurs Gastrointestinal: normoactive bowel sounds Integumentary: no rash Neurologic: no focal deficit Musculoskeletal: no deformities Psychiatric: mood/affect appropriate - Lab 07/07/17 04:30 07/07/17 04:30 Most recent lab results Calcium 8.7 mg/dl (8.6-10.4) 07/07/17 04:30 Assessment and Plan (1) ESRD (end stage renal disease) on dialysis Status: Chronic Comment: Electrolytes look ok. She is BP better on Midodrine. She will have her regular dialysis treatment today. Sepsis. ? Pneumonia. Blood culture cornybacterium. Has been doing well.
[2017-07-07] MEDS: traMADol 50 MG TABLET PO SCH (09:28)
[2017-07-07] MEDS: DOCUSATE SODIUM 100 MG CAPSULE PO SCH (09:28)
[2017-07-07] MEDS: MIDODRINE 5 MG TABLET PO SCH ×2 (09:28→14:31)
[2017-07-07] MEDS: SEVELAMER 800 MG TABLET PO SCH ×2 (09:28→14:30)
[2017-07-07] MEDS: HEPARIN 5,000 UNIT/ML VIAL SQ SCH (09:29)
[2017-07-07] MEDS: ASPIRIN 325 MG ENTERIC COATED TABLET PO SCH (09:29)
[2017-07-07] MEDS: PANTOPRAZOLE 40 MG VIAL IV SCH (09:31)
[2017-07-07] MEDS: TRIAMCINOLONE CREAM 0.1% 15G 1 DOSE TUBE TOPICAL SCH (09:31)
--- NOTE | 2017-07-07 10:12 | Discharge Summary ---
Medical - DS: Prov Patient information: Note initiated : 07/07/17 at 10:12 am Service Date, if different from initiated Date: [] Patient: Marjorie Wallace 67 y/o F admitted on 07/03/17 for Fever/Septic Shock w / Lactic Acidosis, Hypoxia. Chief Complaint: [] Date of admission: 07/03/17 07:28 Discharge date: 07/07/17 Primary care physician: Rosalia Puu to clinic Dr. Ely, nephrology. Admitting clinician: Nayely Campos Consults: 07/03/17 06:16 Consult to Physician [CONS] Stat Comment: Consulting Provider: Nayely Campos Reason For Exam: possible admit Dr. Ely, nephrology Attending physician on discharge: Marnie Vora Medical - DS: Meds - Discharge Medications Prescriptions: Albuterol Sulfate [Proair Hfa] 8.5 gm IH Q4HP #1 hfa.aer.ad Amoxicillin/Potassium Clav [Augmentin] 875 mg PO BIDCC #12 tab Midodrine [Midodrine HCl] 10 mg PO TID@0800,1200,1700 #90 tab Omeprazole [Prilosec] 20 mg PO ACB #30 cap Active and Home Medications: Discharge medications: Augmentin 875 mg p.o. twice daily for 5 more days Albuterol inhaler please use 2 puffs at least 3 times a day, to keep airways open Please use your incentive spirometer to practice deep breathing throughout the day Tylenol 650 mg every 6 hours as needed pain or low-grade fever Aspirin 325 mg daily Coreg 12.5 mg p.o. twice daily on Sundays, Tuesdays, , Saturdays Colace 100 mg p.o. daily Vitamin D 50,000 units q. next line gabapentin 100 mg daily as needed neuropathy pain Midodrine 10 mg p.o. 3 times daily to support blood pressure Nephro-Juancarlos/multivitamin 1 daily Omeprazole 20 mg p.o. daily for ulcer prevention. He did have some blood in your vomit on arrival. Sevelemer 800 mg, 4 tabs, 3 times a day, please verify with Dr. Ely Tramadol 50 mg twice daily as needed for pain Alendronate 70 mg p.o. weekly Previous home Medications: Aldendronate 70 mg PO WEEKLY 02/14/16 [History Confirmed 07/05/17 Last Taken 09:00] Aspirin [Lite Coat Aspirin] 325 mg PO DAILY 02/14/16 [History Confirmed Last Taken 07/01/17 09:00] Carvedilol [Coreg] 12.5 mg PO BIDCC 02/14/16 [History Confirmed 07/05/17 Last Taken 07/01/17 09:00] Docusate Sodium [Dok] 100 mg PO DAILY 02/14/16 [History Confirmed 07/05/17 Last Taken 07/01/17 09:00] Gabapentin [Neurontin] 100 mg PO DAILY PRN 02/14/16 [History Confirmed 07/05/17 Last Taken 07/01/17 21:00] traMADol [Ultram] 50 mg PO BID 02/14/16 [History Confirmed 07/05/17 Last Taken 07/01/17 21:00] Ergocalciferol (Vitamin D2) [Vitamin D2] 50,000 unit PO WEEKLY 07/03/17 [ History Confirmed 07/05/17 Last Taken 07/01/17 09:00] Folic Acid/Vit Bcomp,C [Nephro-Juancarlos Tablet] 0.8 mg PO DAILY 07/03/17 [History Confirmed 07/05/17 Last Taken 07/01/17] Sevelamer [Renvela] 800 mg PO TID 07/03/17 [History Confirmed 07/05/17 Last Taken 07/01/17 17:00] Medical - DS: Hosp Hospital course: Mr. Wallace is a 67 year old F July 03, 2017: History of present illness: Ms. Wallace is a 67 year old female with a history of end-stage renal disease on dialysis, prior sepsis secondary to foot cellulitis who presented to the ER early this morning with chills. She was found to be febrile with a temperature of 102.8. Her localizing symptoms include 2 episodes of nonbloody diarrhea, emesis while in the ER that was Hemoccult positive and myalgias. She has been exposed to her 9-year-old niece that has an upper respiratory infection. She endorses myalgias. She has chronic cramping in her bilateral legs with dialysis and at night. Her workup was delayed as she is a difficult lab draw. She was treated with vancomycin and ceftriaxone in the ED. Blood cultures were taken prior to antibiotics. She did not receive her influenza vaccine this year as she "doesn't believe in them". Her rapid flu was negative in the ED. She denies any abdominal pain, rhinorrhea, sore throat, new skin problems, worsening dental problems. She states her top right gum is wearing away, but has no new pain there. She has a history of sepsis secondary to foot cellulitis that required debridement by Dr. Solares. She has a wound between her right third and fourth toes that has some drainage, but no purulence. She complains of bilateral shoulder aching and attributes this to rotator cuff injury that has been chronic. This achy pain radiates to her shoulders and her elbows. It is not associated with exertion. July 04: Central line placed yesterday by Dr. Saul Levothroid has been weaned down to 10 g. She denies any pain. She tolerated Jell-O yesterday and has no nausea. We'll advance diet today. Her troponin has not yet peaked at 0.18. She denies any chest pressure or shortness of breath. Her blood sugars are mostly controlled. She is saturating 99% on 3 L. ROS: no fever. no sob July 05: Today, the patient remains fairly irritable. 1 minute she reports fairly diffuse pain, and the next minute she denies any pain at all, and says we should stop asking her about chest pain. She is still quite insistent that her blood pressure is always low, and that she should be allowed to go home. She is needed to stay on levo fed at 6 mics to keep her maps greater than 60, although this evening, nurses were able to wean her down. Otherwise, she denies fever chills, headaches or dizziness, chest pain or palpitations, shortness of breath, GI or symptoms. July 06: Today, the patient continues to be fairly frustrated. She wants to go home, and does not see why low blood pressure should prevent her from doing that. She was weaned off of the levo fed yesterday, but her blood pressures dropped down again last night, with systolic in the 60s and 70s. Levophed drip was resumed. Dr. Ely and I both had fairly prolonged discussions with her today about the dangers of leaving the hospital before she is clinically stable. She is quite insistent she feels fine all the time with very low blood pressures. She continues to deny fever chills, sore throat or cough, chest pain or palpitations, shortness of breath, GI or symptoms. Yesterday's chest x-ray showed improving right base infiltrate. Leukocytosis has resolved. She continues to be somewhat hypoxic on room air, with O2 saturations dipping down into the 85% range. She insists that she is always fine with low oxygen, as she purposely does not make an effort to breathe deeply, as she thinks this is too noisy and too annoying for those around her. July 07: Hospital course: -The patient was treated with IV antibiotics for a right lower lobe pneumonia. She continues to deny cough or shortness of breath. She tends to hyperventilate , and appears to have pickwickian syndrome. She received regular bronchodilator treatments and incentive spirometry and much encouragement. Today she will be switched over to oral Augmentin to complete her course, as she is quite anxious to go home. -Her room air O2 saturations continue to fall into the upper 80s when she is at rest, but go back above 90 when she is encouraged to deep breathe or cough. She is encouraged to have a referral for home oximetry testing, or sleep apnea testing, as she may need to wear oxygen at home, at least during sleep. -Patient presented with severe hypotension, and was thought to be septic. Levo fed was used to support her blood pressures, but every time that was weaned off systolic blood pressures would drop into the 60s and 70s, with maps well below 60. Patient was quite insistent that she always has blood pressure this low and feels fine. She was started on midodrine yesterday, and that seems to have improved her blood pressures, which are now ranging from 120-130 over 50s. -She is undergoing her regular dialysis treatment today, and then hopes to go home after that. Otherwise, she continues to be irritable when asked about any symptoms. She continues to deny fever or chills, chest pain or shortness of breath, GI or symptoms. -Hemoglobin has been drifting down over the course of her stay. She did have some heme positive emesis on arrival, but has not had any clinical signs of bleeding since then. She does have chronic anemia based on renal failure. She will need close follow-up, as she may need transfusion if she drops any lower. Exam: She is awake and alert, and somewhat irritable. Neck shows no obvious JVD or lymphadenopathy. Cardiac exam shows regular rate and rhythm. Lungs: Again show a decreased crackles mainly at the right base, without rhonchi or wheezes. Abdomen is soft and nontender. Extremities show no significant edema. Neurologic exam: Is grossly nonfocal. A/P Narrative: #1. Infectious disease. Septic shock with lactic acidosis, question etiology. DDx and localizing sx include: -Influenza--rapid flu neg. However, sensitivity is at best 50-70%. Chest x-ray does suggest a right basilar infiltrate. Also consider gastroenteritis, bacteremia, hypoxia. The patient was treated with IV vancomycin plus Zosyn, and seems to be improving , per follow-up chest x-ray. She continues to be at risk for recurrent pneumonia, as she consistently hyperventilates, and really does not ambulate anymore, spending most of her time in a wheelchair. -Blood pressure is finally more stable now that she is taking midodrine. #2. Renal. End-stage renal disease. She is receiving dialysis under the direction of Dr. Ely. 3. Pulmonary. Patient was moderately hypoxic on arrival. She does have mild CHF on her chest x-ray, although her systolic function appears normal on echo. Volume status is managed carefully, regarding CHF risks versus hypotension. -July 05 chest x-ray showed improvement in pulmonary vascular congestion. Echocardiogram does show significant signs of pulmonary hypertension. Patient is hypoxic on room air, and certainly has the appearance of pickwickian syndrome. She should probably be on home oxygen to keep O2 saturations above 90%, both for pulmonary hypertension as well as generally staying oxygenated. I doubt she will agree to do this at home. She should have pulmonary evaluation at some point, to clarify these issues. #4. Cardiac. -She was really quite hypotensive without vasopressors, but this is much improved since the addition of midodrine. We will see how she does once she completes dialysis today. Somers her hope is to discharge to home this afternoon. -Initial troponin was elevated, and the next 2 or even higher. The patient absolutely denied any symptoms. She reported she had had a stress test at [facility] from a couple of years ago and she believes even a catheterization and they told her there were no significant blockages. She declined any further cardiac workup. Echocardiogram did not show any wall motion abnormalities. 5. GI. Guaiac positive emesis. PPI was started. No current evidence of GI bleed, but hemoglobin and hematocrit are drifting down. She is getting into the range where we should consider transfusion. -She should have follow-up CBC soon, as she may need transfusion if hemoglobin drops below 7.. 6. Hematologic. Anemia of chronic disease likely. 7. Chronic pain. Resume tramadol and gabapentin as tolerated. 8. DVT prophylaxis: Subcu heparin. 9. CODE STATUS: Limited code. CPR okay, but no intubation. Discharge diagnosis: Sepsis. RLL pneumonia. Hypoxia. Hypotension. Abnormal troponin - Time Spent with Patient Total time spent providing and/or coordinating discharge services: Greater than 30 minutes Medical - DS: Exam - Constitutional Vitals: Vital Signs Temp Pulse Resp BP Pulse Ox 07/07/17 10:09 97.1 F 07/07/17 06:01 16 108/42 97 07/07/17 05:01 71 15 95/32 93 07/07/17 04:02 97.6 F 16 115/47 100 07/07/17 03:01 18 99/43 100 07/07/17 02:01 117/49 100 07/07/17 01:01 15 104/44 100 07/07/17 00:03 18 117/37 97 07/07/17 00:00 98 07/06/17 23:01 97.6 F 18 104/44 100 07/06/17 22:37 78 97 07/06/17 22:31 16 96/41 98 07/06/17 22:01 15 102/40 100 07/06/17 21:16 15 99/41 88 L 07/06/17 20:31 16 93/37 92 07/06/17 20:01 76 87/42 95 07/06/17 19:31 17 97/53 94 07/06/17 19:01 16 90/53 89 L 07/06/17 18:38 18 86/65 94 07/06/17 18:01 107/46 07/06/17 18:00 80 17 96 07/06/17 17:46 81 116/50 95 07/06/17 17:31 80 105/87 94 07/06/17 17:16 94/43 07/06/17 17:01 79 79/37 90 17 16:46 82 85/39 91 17 16:31 80 100/50 90 17 16:27 80 88/44 94 17 16:16 82/39 17 16:14 82 88/44 07/06/17 16:09 77 82/39 07/06/17 16:01 73 95/56 94 07/06/17 15:54 81 95/56 07/06/17 15:47 73 93/46 92 17 15:46 73 86/44 88 L 07/06/17 15:44 74 93/46 07/06/17 15:31 74 93/37 97 07/06/17 15:28 73 119/41 96 07/06/17 15:25 76 93/37 07/06/17 15:16 72 101/47 100 07/06/17 15:02 73 98 07/06/17 15:01 73 19 106/52 98 07/06/17 14:54 74 106/52 07/06/17 14:46 71 101/41 99 07/06/17 14:30 73 126/50 100 07/06/17 14:26 97.6 F 73 126/50 07/06/17 14:20 73 99 07/06/17 14:16 72 120/54 98 07/06/17 14:01 72 129/46 99 07/06/17 13:46 76 121/54 97 07/06/17 13:32 77 108/45 100 07/06/17 13:16 121/71 07/06/17 13:01 76 122/52 98 07/06/17 12:33 129/51 07/06/17 12:19 97.2 F 80 16 124/33 97 07/06/17 12:01 118/50 07/06/17 12:00 100 07/06/17 11:46 113/45 07/06/17 11:31 79 126/34 99 07/06/17 11:16 76 115/31 97 07/06/17 11:15 40 L 85 L 07/06/17 11:02 112/49 07/06/17 10:47 77 105/46 87 L 07/06/17 10:32 80 111/46 97 07/06/17 10:17 83 108/44 96 Intake and Output 07/06/17 07/07/17 07/07/17 21:59 05:59 13:59 Intake Total 360 / 360 150 / 150 0 / 0 Output Total 1999 Balance -1640 / -1640 150 / 150 0 / 0 Intake: IV 100 / 100 Zosyn 2.25 gm In Dextrose 5% in 100 / 100 Water 50 ml @ 100 mls/hr IV Q8H [facility] Rx#:[id number] Oral 360 / 360 50 / 50 0 / 0 Output: Hemodialysis UF 1999 Other: Meal Dinner Percent of Meal Consumed 75% # Bowel Movements 1 Weight 341 lb Medical - DS: Data Labs on day of discharge: Labs from last 24 hours 07/07/17 07/07/17 04:30 04:30 WBC 6.6 RBC 2.37 L Hgb 7.8 L Hct 22.8 L MCV 95.9 MCH 32.9 MCHC 34.3 RDW 16.1 H Plt Count 193 MPV 8.0 Total Counted 100 Seg Neutrophils % 60 Band Neutrophils % Not Reportable Lymphocytes % 21 Monocytes % (Manual) 9 Eosinophils % (Manual) 10 H Platelet Estimate Normal RBC Morphology Abnorm A Anisocytosis 1+ A Sodium 137 Potassium 4.2 Chloride 96 Carbon Dioxide 27 Anion Gap 14.0 BUN 38 H Creatinine 5.5 H* GFR Calculation 8 Glucose 137 H Calcium 8.7 Total Bilirubin 0.3 AST 18 ALT 11 Alkaline Phosphatase 104 Total Protein 5.8 L Albumin 2.8 L Globulin 3.0 Albumin/Globulin Ratio 0.9 L Preliminary micro results at discharge 07/03/17 06:24 Blood Culture - Preliminary Blood 07/03/17 05:35 Blood Culture - Preliminary Blood Corynebacterium species July 05: Chest x-ray: Shows an improving right basilar infiltrate. Interval resolution of CHF. July 04: Echocardiogram: Shows LVH, LVEF 60%. No wall motion abnormalities. Grade 2 diastolic dysfunction. Biatrial enlargement, moderate to severe pulmonary hypertension. Small pericardial effusion. No vegetations. Mild LV dilation. July 03: Blood culture: Is growing corynebacterium species from only one bottle, thought to be a contaminant. Chest x-ray: IMPRESSION: Moderate CHF unchanged.. Moderate right basilar infiltrate - stable. Right IJ catheter overlies the proximal internal jugular vein - near the brachycephalic junction Medical - DS: A/P - Patient/Caregiver Discharge Instructions Activity: increase activity as tolerated, resume usual activities as tolerated Diet: Renal/Consistent Carbs Additional Instructions: 1. Right lower lobe pneumonia. Please take the antibiotics until gone. Please use the inhaler at least 3 times a day to help keep your airways open. Please use your incentive spirometer to practice deep breathing every couple of hours, to keep the air moving. Next 2. Pulmonary. Your oxygen levels tend to run low. Please have your regular doctor refer you for further testing, to see if you need home oxygen. You may just need this at night while you sleep. Next 3. Anemia. Your red blood cell count has been trending downward. Dr. Ely gave you medicine to try to stimulate your bone marrow to make more blood. Your blood counts should be rechecked, as if they drop any lower, you should probably have a transfusion. Discharge medications: Augmentin 875 mg p.o. twice daily for 5 more days Albuterol inhaler please use 2 puffs at least 3 times a day, to keep airways open Please use your incentive spirometer to practice deep breathing throughout the day Tylenol 650 mg every 6 hours as needed pain or low-grade fever Aspirin 325 mg daily Coreg 12.5 mg p.o. twice daily on Sundays, Tuesdays, , Saturdays Colace 100 mg p.o. daily Vitamin D 50,000 units q. next line gabapentin 100 mg daily as needed neuropathy pain Midodrine 10 mg p.o. 3 times daily to support blood pressure Nephro-Juancarlos/multivitamin 1 daily Omeprazole 20 mg p.o. daily for ulcer prevention. He did have some blood in your vomit on arrival. Sevelemer 800 , 4 tabs, 3 times a day, please verify with Dr. Ely Tramadol 50 mg twice daily as needed for pain Alendronate 70 mg p.o. weekly Previous home Medications: Aldendronate 70 mg PO WEEKLY 02/14/16 [History Confirmed 07/05/17 Last Taken 09:00] Aspirin [Lite Coat Aspirin] 325 mg PO DAILY 02/14/16 [History Confirmed Last Taken 07/01/17 09:00] Carvedilol [Coreg] 12.5 mg PO BIDCC 07/29/16 [History Confirmed 07/05/17 Last Taken 07/01/17 09:00] Docusate Sodium [Dok] 100 mg PO DAILY 02/14/16 [History Confirmed 07/05/17 Last Taken 07/01/17 09:00] Gabapentin [Neurontin] 100 mg PO DAILY PRN 02/14/16 [History Confirmed 07/05/17 Last Taken 07/01/17 21:00] traMADol [Ultram] 50 mg PO BID 02/14/16 [History Confirmed 07/05/17 Last Taken 07/01/17 21:00] Ergocalciferol (Vitamin D2) [Vitamin D2] 50,000 unit PO WEEKLY 07/03/17 [ History Confirmed 07/05/17 Last Taken 07/01/17 09:00] Folic Acid/Vit Bcomp,C [Nephro-Juancarlos Tablet] 0.8 mg PO DAILY 07/03/17 [History Confirmed 07/05/17 Last Taken 07/01/17] Sevelamer [Renvela] 800 mg PO TID 07/03/17 [History Confirmed 07/05/17 Last Taken 07/01/17 17:00] Continue with your current dialysis schedule. Prescriptions: Albuterol Sulfate [Proair Hfa] 8.5 gm IH Q4HP #1 hfa.aer.ad Amoxicillin/Potassium Clav [Augmentin] 875 mg PO BIDCC #12 tab Midodrine [Midodrine HCl] 10 mg PO TID@0800,1200,1700 #90 tab Omeprazole [Prilosec] 20 mg PO ACB #30 cap Other Amb Orders: Complete Blood Count Time Frame: 2 Days, Location: Determined By Patient - Follow up Plan Follow up with: [facility] [Outside] (We were unable to schedule a post hospital follow up appointment today as they were closed. Please call to schedule ) Disposition: Home, Self-Care Prognosis: Fair Rehab Potential: Fair I certify that the patient requires SNF services: No Overall status at discharge: patient is progressing back to baseline Medical - DS: Qual - VTE Deep Vein Thrombosis/Pulmonary Embolism Present on Admission: No
[2017-07-08] MEDS ORDERED: ERGOCALCIFEROL (VITAMIN D2) 50,000 UNIT CAPSULE PO SCH (08:00)
== END 2017-07-07 16:45 | disposition home or self-care (01) | DRG 871 ==
LOC: ED 03:41 → SUATTDRO 07:28 → ICU 07:28
PROVIDERS: ADMIT Internal Medicine; ATTEND Internal Medicine